=== PATIENT | male | born 1940 | race Caucasian/White ===

== ENCOUNTER → 2020-06-25 10:15 | Outpatient (BNVA) | payer MEDICARE, SELFPAY | PROVIDERS: Visit Provider Nurse Practitioner Family | DX: E11.9 Type 2 diabetes mellitus without complications (principal); E55.9 Vitamin D deficiency, unspecified; I10 Essential (primary) hypertension; E78.5 Hyperlipidemia, unspecified; N40.0 Benign prostatic hyperplasia without lower urinary tract symptoms | CPT/HCPCS: 80053; 80061; 82043; 82306; 82607; 83036; 84153; 85025 ==

== ENCOUNTER → 2020-09-11 13:58 | Outpatient (BNVA) | payer MEDICARE, SELFPAY | PROVIDERS: Visit Provider Nurse Practitioner Family | DX: M25.551 Pain in right hip (principal); M25.561 Pain in right knee; G89.29 Other chronic pain; M16.11 Unilateral primary osteoarthritis, right hip | CPT/HCPCS: 73502; 73562 ==

== ENCOUNTER → 2020-10-04 08:05 | Outpatient (BNVA) | payer MEDICARE, SELFPAY | PROVIDERS: Referring Provider Nurse Practitioner Family; Visit Provider Specialist | DX: G89.29 Other chronic pain (principal); M16.11 Unilateral primary osteoarthritis, right hip; M25.561 Pain in right knee | CPT/HCPCS: 73502 ==

== ENCOUNTER → 2020-12-20 08:47 | Outpatient (BNVA) | payer MEDICARE, SELFPAY | PROVIDERS: PCP Nurse Practitioner Family; Visit Provider Nurse Practitioner Family | DX: E11.9 Type 2 diabetes mellitus without complications (principal); I10 Essential (primary) hypertension | CPT/HCPCS: 80053; 80061; 82043; 83036; 85025 ==

== ENCOUNTER → 2021-03-28 14:11 | Outpatient (BNVA) | payer MEDICARE, SELFPAY | PROVIDERS: PCP Nurse Practitioner Family; Visit Provider Nurse Practitioner Family | DX: D64.9 Anemia, unspecified (principal) | CPT/HCPCS: 85025 ==

== ENCOUNTER → 2021-04-05 09:25 | Outpatient (BNVA) | payer MEDICARE, SELFPAY | PROVIDERS: PCP Nurse Practitioner Family; Visit Provider Nurse Practitioner Family | DX: I10 Essential (primary) hypertension (principal) | CPT/HCPCS: 85025 ==

== ENCOUNTER → 2021-06-19 08:30 | Outpatient (BNVA) | payer MEDICARE, SELFPAY | PROVIDERS: PCP Nurse Practitioner Family; Visit Provider Nurse Practitioner Family | DX: I10 Essential (primary) hypertension (principal); N40.0 Benign prostatic hyperplasia without lower urinary tract symptoms; E78.5 Hyperlipidemia, unspecified; E11.9 Type 2 diabetes mellitus without complications; E55.9 Vitamin D deficiency, unspecified | CPT/HCPCS: 80053; 80061; 82306; 83036; 84443; 85025; G0103 ==

== ENCOUNTER → 2021-09-04 09:36 | Outpatient (BNVA) | payer MEDICARE, SELFPAY | PROVIDERS: PCP Nurse Practitioner Family; Visit Provider Nurse Practitioner Family | DX: I10 Essential (primary) hypertension (principal) | CPT/HCPCS: 80048 ==

== ENCOUNTER → 2021-12-09 11:27 | Outpatient (BNVA) | payer MEDICARE, SELFPAY | PROVIDERS: PCP Nurse Practitioner Family; Visit Provider Nurse Practitioner Family | DX: E11.9 Type 2 diabetes mellitus without complications (principal); I10 Essential (primary) hypertension; E78.5 Hyperlipidemia, unspecified | CPT/HCPCS: 80053; 80061; 83036; 85025 ==

== ENCOUNTER → 2022-04-09 08:07 | Outpatient (BNVA) | payer MEDICARE, SELFPAY | PROVIDERS: PCP Nurse Practitioner Family; Visit Provider Nurse Practitioner Family | DX: I10 Essential (primary) hypertension (principal); E78.5 Hyperlipidemia, unspecified; E11.9 Type 2 diabetes mellitus without complications; E55.9 Vitamin D deficiency, unspecified | CPT/HCPCS: 80053; 80061; 82043; 82306; 83036; 84443; 85025 ==

== ENCOUNTER → 2022-04-17 08:26 | Outpatient (BNVA) | payer MEDICARE, SELFPAY | PROVIDERS: PCP Nurse Practitioner Family; Visit Provider Nurse Practitioner Family | DX: R60.9 Edema, unspecified (principal); I10 Essential (primary) hypertension | CPT/HCPCS: 80048 ==

== ENCOUNTER 2022-07-03 09:09 | Emergency (ER) | payer MEDICARE, SELFPAY ==
[2022-07-03 09:14] VITALS: BP 191/83; PULSE 91; RESP 16; TEMP 36.7; O2SAT 99; BMI 30.7
--- NOTE | 2022-07-03 09:17 | ECG_ITS ---
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 Measurements Intervals [place] Rate: 78 P: 27 [place]: 274 QRS: -58 QRSD: 165 T: 36 QT: 425 QTc: 487 Interpretive Statements SINUS RHYTHM WITH FIRST DEGREE AV BLOCK RIGHT BUNDLE BRANCH BLOCK [120+ ms QRS DURATION, UPRIGHT V1, 40+ ms S IN I/aVL/V4/V5/V6] LEFT ANTERIOR FASCICULAR BLOCK [QRS AXIS <= -45, QR IN I, RS IN II] MINIMAL VOLTAGE CRITERIA FOR LVH, CONSIDER NORMAL VARIANT [MEETS CRITERIA IN ONE OF: R(aVL), S(V1), R(V5), R(V5/V6)+S(V1)] Compared to ECG 05/16/2016 19:13:17 First degree AV block now present Right bundle-branch block now present Electronically Signed On 07-03-2022 20:42:04 AUTOMOBILE UPHOLSTERER by Jerica Bonner M.D. [id number]
--- NOTE | 2022-07-03 09:25 | W.ED.DIZZY ---
HPI - Dizziness General: Chief Complaint: Dizziness Stated Complaint: vision problems, dizzy Time Seen by Provider: 07/03/22 09:11 Source: patient Mode of arrival: ambulatory History of Present Illness: HPI Narrative: 81-year-old male who presents to the emergency room with complaints of lightheaded and dizziness that is worse when he sits better when he lays down and does not move moving his head does not seem to trigger it. It began just this morning. He has no history of strokes he has no change in vision speech or swallowing no difficulty with gait other than feeling unsteady. He states he has vertiginous-like syndrome with feels like the world is spinning around him. He has not previously had this no recent medication changes. MD elicited complaint: dizziness Onset (ago): hour(s) Severity: mild Description: room spinning Exacerbating factors: movement/ambulation and change in body position Relieving factors: remaining still Associated symptoms: Denies change in hearing, chest pain, chills, cough, diaphoresis, ear discharge, ear pressure, fevers/chills, headache(s), malaise, nausea, nasal congestion, palpitations, rash, short of breath, syncope, tinnitus, vomiting or weakness Associated neuro symptoms: Deny confusion, difficulty speaking, dysphagia, diplopia, extremity weakness, facial numbness, facial weakness, gait changes, numbness in extremities or visual changes Review of Systems Const: Denies: fever(s), chills, fatigue, malaise or diaphoresis ENMT: Denies: ear discharge, change in hearing, tinnitus or nasal congestion Card: Denies: chest pain, palpitations or syncope Resp: Denies: dyspnea, productive cough or non-productive cough GI: Denies: abdominal pain, nausea, vomiting or dysphagia : Denies: flank pain, dysuria, urinary frequency or urinary urgency Musc: Denies: neck pain or back pain Skin/Breast: Denies: rash or pruritus Neuro: Denies: headache(s), numbness in extremities or confusion [facility] ED PFSH: Medical History BPH (benign prostatic hyperplasia) Diabetes mellitus Dyslipidemia Hypertension Surgical History Hx of hernia repair (~2009) Family History Father Diabetes Hypertension Denies family history of Bleeding disorder Social History Smoking and tobacco status: never smoked Second hand smoke exposure: No Alcohol intake: never Caregiver/support person: Yes Lives independently: Yes Household members: none Marital status: Single service: No Current occupational status: retired History of recent travel: No Current gender identity: Male Special ryan needs: No Agree to transfusion: Yes Physical Exam Const: GENERAL APPEARANCE: cooperative and comfortable ORIENTATION/CONSCIOUSNESS: Yes awake, Yes oriented to person, Yes oriented to place and Yes oriented to time HENMT: COMMON NORMALS: normocephalic, atraumatic, hearing grossly normal bilaterally, external ears normal, EAC's normal, TM's normal bilaterally, Normal nasal mucous membranes and turbinates present, moist oral mucous membranes and oropharynx normal HEAD & SCALP: normocephalic and atraumatic NOSE: Normal nasal mucous membranes and turbinates present EXTERNAL EAR: Yes external ears normal EXTERNAL AUDITORY CANAL: EAC's normal TYMPANIC MEMBRANE: TM's normal bilaterally Eye: COMMON NORMALS: Equal, round and reactive pupils present, EOMs intact bilaterally, conjunctivae normal and no scleral icterus CONJUNCTIVA: Yes conjunctivae normal PUPIL: Yes Equal, round and reactive pupils present Neck/C-Spine: COMMON NORMALS: full ROM, no lymphadenopathy, supple and no JVD Resp: COMMON NORMALS: normal respiratory effort, No retractions, No use of accessory muscles and clear to auscultation bilaterally AUSCULTATION: clear to auscultation bilaterally Cardio: COMMON NORMALS: no JVD, regular rate, regular rhythm and No murmurs present (Cardio) RATE: regular rate RHYTHM: regular rhythm GI: COMMON NORMALS: Soft to palpation and No hepatosplenomegaly present AUSCULTATION: Yes normoactive bowel sounds PALPATION: Yes Soft to palpation, No Tenderness to palpation present (GI), No Guarding due to palpation present (GI) and Yes No hepatosplenomegaly present Extremity: COMMON NORMALS: normal to inspection, capillary refill normal, no clubbing, cyanosis or edema, no calf tenderness and no pedal edema Neuro: SENSORIUM/ORIENTATION: Yes oriented to person, Yes oriented to place and Yes oriented to time Skin: COMMON NORMALS: no rashes or lesions noted GENERAL SKIN EXAM: no rashes or lesions noted Course Vital Signs: Vital signs: Vital Signs Temperature 98.1 F 07/03/22 09:14 Pulse Rate 80 07/03/22 10:34 Respiratory Rate 19 H 07/03/22 10:34 Blood Pressure 186/97 07/03/22 10:34 Pulse Oximetry 99 07/03/22 09:14 MDM - Dizziness Medical Decision Making No focal deficits symptoms reproducible. Treat with meclizine recheck if not improving or if symptoms change. Medical Records I reviewed the patient's medical records. Lab Data I reviewed the patient's lab results. 07/03/22 09:40 07/03/22 09:40 Laboratory Results WBC 8.3 10^3/uL (4.0-10.0) 07/03/22 09:40 RBC 5.29 10^6/uL (4.1-5.3) 07/03/22 09:40 Hgb 16.6 g/dL (11.7-16.6) 07/03/22 09:40 Hct 49.5 % (42.0-52.0) 07/03/22 09:40 MCV 93.6 fl (80-94) 07/03/22 09:40 MCH 31.4 pg (28.0-34.0) 07/03/22 09:40 MCHC 33.5 g/dL (30.0-36.0) 07/03/22 09:40 RDW 13.4 % (12.1-15.1) 07/03/22 09:40 Plt Count 293 10^3/cmm (130-400) 07/03/22 09:40 MPV 9.2 fL (7.4-10.4) 07/03/22 09:40 Neut % (Auto) 73.7 % 07/03/22 09:40 Lymph % (Auto) 18.9 % 07/03/22 09:40 [place] % (Auto) 5.4 % 07/03/22 09:40 Eos % (Auto) 0.4 % 07/03/22 09:40 Baso % (Auto) 0.6 % 07/03/22 09:40 Neut # (Auto) 6.11 10^3/uL (1.8-7.7) 07/03/22 09:40 Lymph # (Auto) 1.6 10^3/uL (0.8-4.8) 07/03/22 09:40 [place] # (Auto) 0.5 10^3/uL (0.2-0.9) 07/03/22 09:40 Eos # (Auto) 0.0 10^3/uL (0.0-0.8) 07/03/22 09:40 Baso # (Auto) 0.1 10^3/uL (0.0-0.1) 07/03/22 09:40 Nucleated RBC % (auto) 0 % 07/03/22 09:40 Nucleated RBCs # 0.0 /100WBC 07/03/22 09:40 Sodium 129 mmol/L (136-145) L 07/03/22 09:40 Potassium 4.7 mmol/L (3.5-5.1) 07/03/22 09:40 Chloride 91 mmol/L (98-107) L 07/03/22 09:40 Carbon Dioxide 28 mmol/L (22-29) 07/03/22 09:40 Anion Gap 14.7 (5-19) 07/03/22 09:40 BUN 11 mg/dL (8-23) 07/03/22 09:40 Creatinine 0.8 mg/dL (0.7-1.2) 07/03/22 09:40 GFR Calculation Not Reportable 07/03/22 09:40 Glucose 232 mg/dL (65-115) H 07/03/22 09:40 Calculated Osmolality 275 mOsm/kg (285-295) L 07/03/22 09:40 Calcium 9.9 mg/dL (8.5-10.5) 07/03/22 09:40 Total Bilirubin 0.5 mg/dL (0.15-1.2) 07/03/22 09:40 AST 25 U/L (0-40) 07/03/22 09:40 ALT 29 U/L (0-41) 07/03/22 09:40 Alkaline Phosphatase 68 U/L (40-130) 07/03/22 09:40 Total Protein 7.4 g/dL (6.6-8.7) 07/03/22 09:40 Albumin 4.4 g/dL (3.5-5.2) 07/03/22 09:40 Globulin 3.0 g/dL (1.3-4.6) 07/03/22 09:40 Discharge Plan Discharge Patient Disposition: Home Clinical Impression: Benign paroxysmal positional vertigo Condition: Stable Prescriptions: New meclizine 25 mg tablet 25 mg PO QID PRN (Reason: dizziness) Qty: 20 0RF No Action omega-3 fatty acids 500 mg capsule 500 mg PO DAILY@04 cholecalciferol (vitamin D3) 125 mcg (5,000 unit) capsule 125 mcg PO DAILY@04 multivitamin Tablet 1 tab PO DAILY@04 Super B Complex + C Tablet 1 tab PO DAILY@04 Aspir-81 81 mg Tablet,Delayed Release (Dr/Ec) 81 mg PO DAILY@04 furosemide 20 mg tablet 20 mg PO DAILY PRN (Reason: Edema) metformin 500 mg tablet 500 mg PO BID@04,16 atorvastatin 10 mg tablet 10 mg PO DAILY@19 lisinopril-hydrochlorothiazide 20-12.5 mg tablet 1 tab PO BID@04,16 metoprolol succinate 50 mg tablet extended release 24 hr 50 mg PO DAILY@04 amlodipine 5 mg tablet 5 mg PO DAILY@04 finasteride 5 mg tablet 5 mg PO BEDTIME@19 Farxiga 10 mg tablet 10 mg PO DAILY@04 Discharge Orders: Discharge ED (Routine); Ordered 07/03/22 Ordered By: Kyle Hazel Referrals: Josi Hill FNP [Primary Care Provider] - Discharge Diet: Usual diet Discharge Activity: Increase activity as tolerated Patient Instructions: Opioid Safety, Pain Management Activity Restrictions/Additional Instructions: Meclizine as needed to relieve symptoms if symptoms persist follow-up with your primary care doctor you may need evaluation by ENT or adjustment of your blood pressure medications. Coding Level of Care Code ED Welder Production Line Arc for Martha Hansen
[2022-07-03 09:48] LABS: Basophils # 0.1 10^3/uL (0.0-0.1); Basophils % 0.6 %; Eosinophils % 0.4 %; Hematocrit 49.5 % (42.0-52.0); Hemoglobin 16.6 g/dL (11.7-16.6); Lymphocytes # 1.6 10^3/uL (0.8-4.8); Lymphocytes % 18.9 %; Mean Corpuscular HGB Conc 33.5 g/dL (30.0-36.0); Mean Corpuscular Hemoglobin 31.4 pg (28.0-34.0); Mean Corpuscular Volume 93.6 fl (80-94); Mean Platelet Volume 9.2 fL (7.4-10.4); Monocytes # 0.5 10^3/uL (0.2-0.9); Monocytes % 5.4 %; Neutrophils # 6.11 10^3/uL (1.8-7.7); Neutrophils % 73.7 %; Nucleated Red Blood Cells % 0 %; Platelet Count 293 10^3/cmm (130-400); Red Blood Count 5.29 10^6/uL (4.1-5.3); Red Cell Distribution Width 13.4 % (12.1-15.1); White Blood Count 8.3 10^3/uL (4.0-10.0)
[2022-07-03 10:16] LABS: Alanine Aminotransferase 29 U/L (0-41); Albumin Level 4.4 g/dL (3.5-5.2); Alkaline Phosphatase 68 U/L (40-130); Anion Gap 14.7 (5-19); Aspartate Amino Transferase 25 U/L (0-40); Blood Urea Nitrogen 11 mg/dL (8-23); Calcium 9.9 mg/dL (8.5-10.5); Carbon Dioxide 28 mmol/L (22-29); Chloride 91 mmol/L (98-107); Glucose 232 mg/dL (65-115); Osmolality Calculated 275 mOsm/kg (285-295); Potassium 4.7 mmol/L (3.5-5.1); Sodium 129 mmol/L (136-145); Total Bilirubin 0.5 mg/dL (0.15-1.2); Total Protein 7.4 g/dL (6.6-8.7)
[2022-07-03 10:34] VITALS: BP 186/97; PULSE 80; RESP 19
[2022-07-03] MEDS: meclizine 25 mg tablet PO (10:36)
== END 2022-07-03 12:29 | disposition home or self-care (01) ==
PROVIDERS: Emergency Provider Family Medicine; PCP Nurse Practitioner Family
DX: H81.10 Benign paroxysmal vertigo, unspecified ear (principal); Z79.82 Long term (current) use of aspirin; Z79.84 Long term (current) use of oral hypoglycemic drugs; E11.9 Type 2 diabetes mellitus without complications; E78.5 Hyperlipidemia, unspecified; I10 Essential (primary) hypertension
CPT/HCPCS: 80053; 85025; 93005; 99284; J8597

== ENCOUNTER → 2022-08-27 08:18 | Outpatient (BNVA) | payer MEDICARE, SELFPAY | PROVIDERS: PCP Nurse Practitioner Family; Visit Provider Nurse Practitioner Family | DX: E11.9 Type 2 diabetes mellitus without complications (principal); Z09 Encounter for follow-up examination after completed treatment for conditions other than malignant neoplasm; I10 Essential (primary) hypertension; E78.5 Hyperlipidemia, unspecified; E55.9 Vitamin D deficiency, unspecified | CPT/HCPCS: 80053; 80061; 82043; 82306; 83036; 84443; 85025 ==

== ENCOUNTER → 2022-09-11 08:16 | Outpatient (BNVA) | payer MEDICARE, SELFPAY | PROVIDERS: PCP Nurse Practitioner Family; Visit Provider Nurse Practitioner Family | DX: R60.9 Edema, unspecified (principal) | CPT/HCPCS: 80048 ==

== ENCOUNTER → 2022-09-12 08:24 | Outpatient (BNVA) | payer MEDICARE, SELFPAY | PROVIDERS: PCP Nurse Practitioner Family; Visit Provider Nurse Practitioner Family | DX: R39.9 Unspecified symptoms and signs involving the genitourinary system (principal) | CPT/HCPCS: 81000 ==

== ENCOUNTER → 2022-09-26 08:25 | Outpatient (BNVA) | payer MEDICARE, SELFPAY | PROVIDERS: PCP Nurse Practitioner Family; Visit Provider Nurse Practitioner Family | DX: E11.9 Type 2 diabetes mellitus without complications (principal); I10 Essential (primary) hypertension | CPT/HCPCS: 80048 ==

== ENCOUNTER → 2022-11-19 13:28 | Outpatient (BNVA) | payer MEDICARE, SELFPAY | PROVIDERS: PCP Nurse Practitioner Family; Visit Provider Internal Medicine | DX: R07.9 Chest pain, unspecified (principal); I44.0 Atrioventricular block, first degree; I45.2 Bifascicular block; I10 Essential (primary) hypertension; E78.5 Hyperlipidemia, unspecified; E11.9 Type 2 diabetes mellitus without complications | CPT/HCPCS: 93005; 99204 ==

== ENCOUNTER → 2022-12-02 10:58 | Outpatient (BNVA) | payer MEDICARE, SELFPAY | PROVIDERS: PCP Nurse Practitioner Family; Visit Provider Nurse Practitioner Family | DX: E11.9 Type 2 diabetes mellitus without complications (principal); E55.9 Vitamin D deficiency, unspecified | CPT/HCPCS: 80053; 80061; 82306; 82607; 83036; 84443; 85025 ==

== ENCOUNTER 2022-12-04 06:47 | Outpatient (CLI) | payer MEDICARE, SELFPAY ==
--- NOTE | 2022-12-04 07:00 | USCV_ITS ---
Andre Arana Age: 82 Gender: M : 1940 Exam Date: 12/04/2022 07:23 Ordering Phys: Hu Ureña M.D ([email or web address]) Technologist: Brian Escobar [place] [facility] [place]: chest pain, sob BP: 170 / 80 HR: 64 Rhythm: Sinus Technical Quality: Adequate MEASUREMENTS (Male / Female) Normal Values 2D ECHO LVOT Diameter 2.1 cm LV Ejection Fraction MOD 2C 63.3 % LV Ejection Fraction 2C AL 63.5 % LA Diameter 3.5 cm LA Width 3.7 cm LA Height 4.0 cm RA Width 3.1 cm RA Height 4.8 cm Aorta at Sinotubular Diameter 2.2 cm IVC Diameter 1.4 cm M-MODE Aortic Annulus Diameter 2.9 cm LA Ao Ratio MM 1.4 MV E Point Septal Separation 0.5 cm DOPPLER AV Peak Velocity 144.3 cm/s LVOT Peak Velocity 86.0 cm/s AV Area Cont Eq vti 2.0 cm squared AV Area Cont Eq pk 2.0 cm squared MV Peak Velocity 149.0 cm/s MV Area PHT 3.3 cm squared Mitral E to A Ratio 0.5 MV E' Velocity 36.5 cm/s Mitral E to MV E' Ratio 11.0 Mitral E to LV E' Lateral Ratio 9.2 Mitral E to LV E' Septal Ratio 13.7 TR Peak Velocity 258.2 cm/s TR Peak Gradient 26.7 mmHg TR Mean Velocity 218.5 cm/s TR Mean Gradient 21.3 mmHg TR Velocity Time Integral 90.4 cm Right Atrial Pressure 3.0 mmHg Pulmonary Artery Systolic Pressu 29.7 mmHg PV Peak Velocity 110.3 cm/s RV Acceleration Time 0.1 s RV Ejection Time 0.3 s RV AcT/ET 0.2 FINDINGS Left Ventricle Left ventricle is normal size. LV systolic function is normal with EF of 55 to 60%. No regional wall motion abnormalities are seen. Grade 1 diastolic dysfunction Right Ventricle Normal in size and function Right Atrium Normal in size Left Atrium Normal in size Mitral Valve Moderate mitral annular calcification. Trace mitral regurgitation. Aortic Valve Aortic valve is thickened and calcified. No significant stenosis. Mild aortic regurgitation. Tricuspid Valve Mild tricuspid regurgitation. RVSP is 35 to 40 mmHg. This is consistent with mild pulmonary hypertension. Pulmonic Valve Not well visualized. Trace pulmonic regurgitation. Pericardium Normal Aorta Normal in size IVC Appears to be normal CONCLUSIONS LV systolic function is normal with EF of 55 to 60%. Grade 1 diastolic dysfunction Trace mitral regurgitation Mild aortic regurgitation Mild tricuspid regurgitation Mild pulmonary hypertension Trace pulmonic regurgitation. Compared to prior echocardiogram from 2015, no significant changes are seen. Hu Ureña MD (Electronically Signed) Final Date: 04 December 2022 17:20 S
== END 2022-12-04 06:48 | disposition home or self-care (01) ==
PROVIDERS: PCP Nurse Practitioner Family; Visit Provider Internal Medicine
DX: R07.9 Chest pain, unspecified (principal); R06.02 Shortness of breath
CPT/HCPCS: 93306

== ENCOUNTER → 2023-05-06 11:40 | Outpatient (BNVA) | payer MEDICARE, SELFPAY | PROVIDERS: PCP Nurse Practitioner Family; Visit Provider Nurse Practitioner Family | DX: R60.9 Edema, unspecified (principal); I10 Essential (primary) hypertension; E78.5 Hyperlipidemia, unspecified; E11.9 Type 2 diabetes mellitus without complications; E55.9 Vitamin D deficiency, unspecified; Z09 Encounter for follow-up examination after completed treatment for conditions other than malignant neoplasm; Z12.5 Encounter for screening for malignant neoplasm of prostate | CPT/HCPCS: 80053; 80061; 82306; 83036; 84443; 85025; G0103 ==

== ENCOUNTER → 2023-07-29 08:58 | Outpatient (BNVA) | payer MEDICARE, SELFPAY | PROVIDERS: PCP Nurse Practitioner Family; Visit Provider Nurse Practitioner Family | DX: I10 Essential (primary) hypertension (principal); E11.9 Type 2 diabetes mellitus without complications; Z79.899 Other long term (current) drug therapy | CPT/HCPCS: 80053; 80061; 82043; 83036; 85025 ==

== ENCOUNTER → 2023-08-24 09:15 | Outpatient (BNVA) | payer MEDICARE, SELFPAY | PROVIDERS: PCP Nurse Practitioner Family; Visit Provider Nurse Practitioner Family | DX: E87.1 Hypo-osmolality and hyponatremia (principal) | CPT/HCPCS: 80048 ==

== ENCOUNTER → 2023-09-09 09:00 | Outpatient (BNVA) | payer MEDICARE, SELFPAY | PROVIDERS: PCP Nurse Practitioner Family; Visit Provider Nurse Practitioner Family | DX: E87.1 Hypo-osmolality and hyponatremia (principal) | CPT/HCPCS: 80048 ==

== ENCOUNTER → 2023-11-04 08:31 | Outpatient (BNVA) | payer MEDICARE, SELFPAY | PROVIDERS: PCP Nurse Practitioner Family; Visit Provider Nurse Practitioner Family | DX: E11.9 Type 2 diabetes mellitus without complications (principal); I10 Essential (primary) hypertension; N40.0 Benign prostatic hyperplasia without lower urinary tract symptoms | CPT/HCPCS: 80053; 80061; 83036; 85025 ==

== ENCOUNTER → 2024-02-11 09:08 | Outpatient (BNVA) | payer MEDICARE, SELFPAY | PROVIDERS: PCP Nurse Practitioner Family; Visit Provider Nurse Practitioner Family | DX: E87.1 Hypo-osmolality and hyponatremia (principal); E11.9 Type 2 diabetes mellitus without complications | CPT/HCPCS: 80053; 80061; 83036; 85025 ==

== ENCOUNTER 2024-02-21 06:00 | Outpatient (RCR) | payer MEDICARE, SELFPAY | END 2024-03-21 23:59 | disposition home or self-care (01) | LOC: TPT 06:00 | PROVIDERS: PCP Nurse Practitioner Family; Visit Provider Nurse Practitioner Family | DX: R26.81 Unsteadiness on feet (principal) | CPT/HCPCS: 97110; 97116; 97162 ==

== ENCOUNTER 2024-03-22 06:00 | Outpatient (RCR) | payer MEDICARE, SELFPAY | END 2024-04-21 23:59 | disposition home or self-care (01) | LOC: TPT 06:00 | PROVIDERS: PCP Nurse Practitioner Family; Visit Provider Nurse Practitioner Family | DX: R26.81 Unsteadiness on feet (principal) | CPT/HCPCS: 97110; 97116 ==

== ENCOUNTER → 2024-07-20 10:14 | Outpatient (BNVA) | payer MEDICARE, SELFPAY | PROVIDERS: PCP Nurse Practitioner Family; Visit Provider Nurse Practitioner Family | DX: E11.9 Type 2 diabetes mellitus without complications (principal); I10 Essential (primary) hypertension; Z12.5 Encounter for screening for malignant neoplasm of prostate | CPT/HCPCS: 80053; 80061; 81000; 83036; 85025 ==

== ENCOUNTER → 2024-08-23 09:35 | Outpatient (BNVA) | payer MEDICARE, SELFPAY | PROVIDERS: PCP Nurse Practitioner Family; Visit Provider Nurse Practitioner Family | DX: R60.9 Edema, unspecified (principal) | CPT/HCPCS: 80048 ==

== ENCOUNTER → 2024-10-24 09:10 | Outpatient (BNVA) | payer MEDICARE, SELFPAY | PROVIDERS: PCP Nurse Practitioner Family; Visit Provider Nurse Practitioner Family | DX: E11.9 Type 2 diabetes mellitus without complications (principal); I10 Essential (primary) hypertension; Z09 Encounter for follow-up examination after completed treatment for conditions other than malignant neoplasm; E55.9 Vitamin D deficiency, unspecified; Z13.6 Encounter for screening for cardiovascular disorders | CPT/HCPCS: 80053; 80061; 82306; 82607; 82962; 83036; 83735; 83880; 84443; 85025 ==

== ENCOUNTER → 2024-10-27 11:46 | Outpatient (BNVA) | payer MEDICARE, SELFPAY | PROVIDERS: PCP Nurse Practitioner Family; Visit Provider Internal Medicine | DX: I10 Essential (primary) hypertension (principal); E78.5 Hyperlipidemia, unspecified; E11.9 Type 2 diabetes mellitus without complications; Z79.84 Long term (current) use of oral hypoglycemic drugs; I50.9 Heart failure, unspecified | CPT/HCPCS: 99214 ==

== ENCOUNTER 2024-10-31 18:26 | Emergency (ER) | payer MEDICARE, SELFPAY ==
--- NOTE | 2024-10-31 18:27 | XRR_ITS ---
PROCEDURE INFORMATION: Exam: XR Chest Exam date and time: 10/31/2024 6:43 PM Age: 84 years old Clinical indication: Pain; Chest pressure; Additional info: Chest pain TECHNIQUE: Imaging protocol: Radiologic exam of the chest. Views: 1 view. COMPARISON: CR XR chest 2V* [id number] 09/22/2018 2:46 AM FINDINGS: Lungs: No lobar consolidation. Bibasilar atelectasis. Pleural spaces: Unremarkable. No pleural effusion. No pneumothorax. Heart/Mediastinum: Unremarkable. No cardiomegaly. Bones/joints: Unremarkable. XR/XR chest 1V portable [id number] IMPRESSION: As above.
[2024-10-31 18:28] VITALS: BP 180/81; PULSE 47; TEMP 36.8; O2SAT 92; BMI 33.9
--- NOTE | 2024-10-31 18:33 | ECG_ITS ---
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: : 1940 Requested By: Marion Mark Order Number: [id number] William MD: VINNY BERMEO Measurements Intervals [place] Rate: 92 P: 50 SC: 253 QRS: -66 QRSD: 158 T: 70 QT: 349 QTc: 432 Interpretive Statements SINUS RHYTHM WITH FIRST DEGREE AV BLOCK WITH FREQUENT VENTRICULAR PREMATURE COMPLEXES IN A BIGEMINAL PATTERN RIGHT BUNDLE BRANCH BLOCK [120+ ms QRS DURATION, UPRIGHT V1, 40+ ms S IN I/aVL/V4/V5/V6] LEFT ANTERIOR FASCICULAR BLOCK [QRS AXIS <= -45, QR IN I, RS IN II] LEFT VENTRICULAR HYPERTROPHY AND ST-T CHANGE [VOLTAGE CRITERIA PLUS ST/T ABNORMALITY] Compared to ECG 11/19/2022 13:36:47 Ventricular premature complex(es) now present ST (T wave) deviation now present Electronically Signed On 11-03-2024 23:35:53 CDT by VINNY BERMEO [id number]
--- NOTE | 2024-10-31 18:46 | ED_ITS ---
HPI - Arrhythmia/Palpitations 2 General: Chief Complaint: Arrhythmia/Palpitations Stated Complaint: chest pressure Time Seen by Provider: 10/31/24 18:42 Source: patient Mode of arrival: ambulatory Limitations: no limitations History of Present Illness: 84-year-old male states he has been havi ng chest pressure since this afternoon. He denies any severe pain states it is a pressure he is also been having some hypertension at home as well. He denies any shortness of breath denies any nausea denies any vomiting. Associated symptoms: Deny nausea or vomiting Related Data Home Medications ?Medication ?Instructions ?Recorded ?Confirmed cholecalciferol (vitamin D3) 125 125 mcg PO DAILY@04 0 06/25/20 10/27/24 mcg (5,000 unit) capsule multivitamin 1 tab PO DAILY@06/25/20 0 10/27/24 omega-3 fatty acids 500 mg capsule 500 mg PO DAILY@04 06/25/20 10/27/24 B-complex with vitamin C 1 tab PO DAILY@07/03/22 0 10/27/24 Previous Rx's ?Medication ?Instructions ?Recorded blood sugar diagnostic (Blood #50 ea 09/12/22 Glucose Test strips) blood-glucose meter (Blood Glucose #1 ea 09/12/22 Monitoring kit) lancets 33 gauge (BD Ultra Fine #100 ea 09/12/22 Lancets) carvedilol 12.5 mg tablet 12.5 mg PO BID #180 tabs atorvastatin 10 mg tablet See Rx Instructions .Route 0 07/27/24 .COMPLEX #90 tabs empagliflozin 25 mg tablet See Rx Instructions .Route 07/27/24 (Jardiance) .COMPLEX #90 tabs finasteride 5 mg tablet See Rx Instructions .Route 0 07/27/24 .COMPLEX #90 tabs glipizide 5 mg tablet, extended See Rx Instructions .R oute 07/27/24 release 24 hr .COMPLEX #90 tabs metformin 500 mg tablet See Rx Instructions .Route 0 07/27/24 .COMPLEX #360 tabs lisinopril 40 mg tablet See Rx Instructions .Route 0 10/24/24 .COMPLEX #90 tabs sitagliptin phosphate 25 mg tablet See Rx Instructions .Route 10/26/24 (Januvia) .COMPLEX #90 tabs amlodipine 10 mg tablet 10 mg PO DAILY #90 tabs 02/13 furosemide 20 mg tablet 20 mg PO BID PRN Edema #180 tabs 10/27/24 Allergies Allergy/AdvReac Type Severity Reaction Status Date / Time No Known Allergies Allergy Verified 10/31/24 18:38 Review of Systems 2 Const: Denies: fever(s), chills, body aches or change in appetite ENMT: Denies: throat pain or dental pain Card: Reports: chest pain Resp: Denies: dyspnea GI: Denies: abdominal pain, nausea, vomiting or diarrhea Musc: Denies: neck pain or back pain Skin/Breast: Denies: rash Neuro: Denies: headache(s) PFSH ED 2 PFSH: Medical History Enrolled in chronic care management BPH (benign prostatic hyperplasia) Dyslipidemia Hypertension Diabetes mellitus Surgical History Hx of hernia repair (~2009) Family History Father Diabetes Hypertension Denies family history of Bleeding disorder Social History Smoking and tobacco/nicotine status: never used tobacco/nicotine Second hand smoke exposure: No Alcohol intake: never Substance/Drug Use: never Caregiver/support person: Yes Lives independently: Yes Household members: none Marital status: Single service: No Current occupational status: retired Current gender identity: Male Special ryan needs: No Agree to transfusion: Yes Physical Exam 2 Const: COMMON NORMALS: patient oriented x3 HENMT: COMMON NORMALS: normocephalic and atraumatic HEAD & SCALP: n ormocephalic and atraumatic Neck/C-Spine: COMMON NORMALS: full ROM and supple Chest: COMMONS NORMALS: normal inspection of the chest Resp: COMMON NORMALS: normal respiratory effort, No retractions, No use of accessory muscles and clear to auscultation bilaterally AUSCULTATION: clear to auscultation bilaterally Cardio: COMMON NORMALS: regular rate, regular rhythm and No murmurs present (Cardio) RATE: regular rate RHYTHM: regular rhythm Extremity: COMMON NORMALS: normal to inspection and full ROM Neuro: COMMON NORMALS: patient oriented x3, moves all extremities and no focal motor deficits Psych: COMMON NORMALS: mental status grossly normal, Normal thought process present and cooperative THOUGHT PROCESS: Normal thought process present Skin: COMMON NORMALS: no rashes or lesions noted and no wounds GENERAL SKIN EXAM: no rashes or lesions noted Course 2 Vital Signs: Vital signs: Vital Signs Temperature 98.3 F 10/31/24 18:28 Pulse Rate 71 10/31/24 21:17 Respiratory Rate 16 10/31/24 21:17 Blood Pressure 147/82 10/31/24 21:17 Pulse Oximetry 93 10/31/24 21:17 Oxygen Delivery Me thod Room Air 10/31/24 20:30 MDM - Arrhythmia/Palpitations Medical Decision Making Patient presents for chest pressure that is since resolved his delta troponin was less than 10 he is wanting go home he has no signs of ACS or pulmonary embolism or dissection he is to follow-up with his quality review specialist return if worsening he understands agrees to plan. Medical Records I reviewed the patient's medical records. Lab Data I reviewed the patient's lab results. 10/31/24 18:59 10/31/24 18:59 Radiology Impressions Chest X-Ray 10/31/24 18:27 IMPRESSION: As above. Laboratory Results WBC 7.95 10^3/uL (3.29-11.43) 10/31/24 18:59 RBC 5.46 10^6/uL (3.85-5.65) 10/31/24 18:59 Hgb 17.00 g/dL (11.27-16.99) H 10/31/24 18:59 Hct 50.8 % (37-53) 10/31/24 18:59 MCV 93.0 fl (82-101) 10/31/24 18:59 MCH 31.1 pg (27-33) 10/31/24 18:59 MCHC 33.5 g/dL (30-55) 10/31/24 18:59 RDW 13.9 % (12.1-15.1) 10/31/24 18:59 Plt Count 217 10^3/cmm (157-399) 10/31/24 18:59 MPV 9.2 fL (7.4-10.4) 10/31/24 18:59 Neut % (Auto) 53.3 % 10/31/24 18:59 Lymph % (Auto) 30.2 % 10/31/24 18:59 [place] % (Auto) 11.1 % 10/31/24 18:59 Eos % (Auto) 3.8 % 10/31/24 18:59 Baso % (Auto) 0.8 % 10/31/24 18:59 Neut # (Auto) 4.25 10^3/uL (1.8-7.7) 10/31/24 18:59 Lymph # (Auto) 2.4 10^3/uL (0.8-4.8) 10/31/24 18:59 [place] # (Auto) 0.9 10^3/uL (0.2-0.9) 10/31/24 18:59 Eos # (Auto) 0.3 10^3/uL (0.0-0.8) 10/31/24 18:59 Baso # (Auto) 0.1 10^3/uL (0.0-0.1) 10/31/24 18:59 Nucleated RBC % (auto) 0 % 10/31/24 18:59 Nucleated RBCs # 0.0 /100WBC 10/31/24 18:59 Sodium 135 mmol/L (136-145) L 10/31/24 18:59 Potassium 3.7 mmol/L (3.5-5.1) 10/31/24 18:59 Chloride 97 mmol/L (98-107) L 10/31/24 18:59 Carbon Dioxide 25 mmol/L (22-29) 10/31/24 18:59 Anion Gap 16.7 (5-19) 10/31/24 18:59 BUN 15 mg/dL (8-23) 10/31/24 18:59 Creatinine 0.7 mg/dL (0.7-1.2) 10/31/24 18:59 GFR Calculation Not Reportable 10/31/24 18:59 Glucose 148 mg/dL (65-115) H 10/31/24 18:59 Calculated Osmolality 284 mOsm/kg (285-295) L 10/31/24 18:59 Calcium 9.4 mg/dL (8.5-10.5) 10/31/24 18:59 Total Bilirubin 0.4 mg/dL (0.15-1.2) 10/31/24 18:59 AST 24 U/L (0-40) 10/31/24 18:59 ALT 29 U/L (0-41) 10/31/24 18:59 Alkaline Phosphatase 71 U/L (40-130) 10/31/24 18:59 Troponin T Baseline 50 ng/L (0-15) H 10/31/24 18:59 Troponin T 120 Minute 54.15 ng/L (0-15) H 10/31/24 20:30 Delta Troponin T 4.15 ABS# (0-10) 10/31/24 20:30 NT-Pro-B Natriuret Pep 258 pg/mL (0-450) 10/31/24 18:59 Total Protein 6.7 g/dL (6.6-8.7) 10/31/24 18:59 Albumin 4.3 g/dL (3.5-5.2) 10/31/24 18:59 Globulin 2.4 g/dL (1.3-4.6) 10/31/24 18:59 All radiology interpretation(s) finalized by discharge Discharge Plan Discharge Patient Disposition: Home Clinical Impression: Chest pain Condition: Stable Prescriptions: No Action omega-3 fatty acids 500 mg capsule 500 mg PO DAILY@04 cholecalciferol (vitamin D3) 125 mcg (5,000 unit) capsule 125 mcg PO DAILY@04 multivitamin Tablet 1 tab PO DAILY@04 metformin 500 mg tablet See Rx Instructions .ROUTE .COMPLEX Qty: 360 1RF Dose Instruction: TAKE 2 TABLETS BY MOUTH TWICE DAILY AT 4AM AND 4PM Rx Instructions: TAKE 2 TABLETS BY MOUTH TWICE DAILY AT 4AM AND 4PM glipizide 5 mg tablet extended release 24hr See Rx Instructions .ROUTE .COMPLEX Qty: 90 1RF Dose Instruction: Take 1 tablet by mouth once daily with breakfast Rx Instructions: Take 1 tablet by mouth once daily with breakfast finasteride 5 mg tablet See Rx Instructions .ROUTE .COMPLEX Qty: 90 1RF Dose Instruction: Take 1 tablet by mouth once daily Rx Instructions: Take 1 tablet by mouth once daily Jardiance 25 mg tablet See Rx Instructions .ROUTE .COMPLEX Qty: 90 1RF Dose Instruction: TAKE ONE TABLET BY MOUTH EVERY MORNING Rx Instructions: TAKE ONE TABLET BY MOUTH EVERY MORNING atorvastatin 10 mg tablet See Rx Instructions .ROUTE .COMPLEX Qty: 90 1RF Dose Instruction: TAKE 1 TABLET BY MOUTH ONCE DAILY AT 7PM Rx Instructions: TAKE 1 TABLET BY MOUTH ONCE DAILY AT 7PM furosemide 20 mg tablet 20 mg PO BID PRN (Reason: Edema) Qty: 180 3RF amlodipine 10 mg tablet 10 mg PO DAILY Qty: 90 3RF (DME) blood-glucose meter [Blood Glucose Monitoring] Kit See Rx Instructions .ROUTE .MEDSUPPLY Qty: 1 0RF Rx Instructions: check blood sugar daily and PRN (DME) Blood Glucose Test Strip See Rx Instructions .ROUTE .MEDSUPPLY Qty: 50 12RF Rx Instructions: check blood sugar daily and PRN (DME) lancets [BD Ultra Fine Lancets] 33 gauge misc See Rx Instructions .ROUTE .MEDSUPPLY Qty: 100 11RF Rx Instructions: check blood sugar daily and PRN carvedilol 12.5 mg tablet 12.5 mg PO BID Qty: 180 1RF Rx Instructions: PATIENT MUST MAKE APPOINTMENT AND BE SEEN FOR FURTHER REFILLS lisinopril 40 mg tablet See Rx Instructions .ROUTE .COMPLEX Qty: 90 1RF Dose Instruction: Take 1 tablet by mouth twice daily Rx Instructions: Take 1 tablet by mouth daily Januvia 25 mg tablet See Rx Instructions .ROUTE .COMPLEX Qty: 90 0RF Dose Instruction: Take 1 tablet by mouth once daily Rx Instructions: Take 1 tablet by mouth once daily Super B Complex + C Tablet 1 tab PO DAILY@04 Discharge Orders: Discharge ED (Routine); Ordered 10/31/24 Ordered By: Renetta Hein Referrals: Josi Hill FNP [Primary Care Provider, Family Practice] Discharge Diet: Advance as tolerated Discharge Activity: Resume usual activity Patient Instructions: Chest Pain (ED) Print Language: Montserratian Coding Level of Care Code ED Crossing Watchman for Martha Hansen
[2024-10-31] MEDS: aspirin 81 mg Chew Tablet 324 MG PO (19:00)
[2024-10-31] MEDS: nitroglycerin 0.4 mg sublingual Tablet SUBLINGUAL (19:01)
[2024-10-31 19:06] LABS: Basophils # 0.1 10^3/uL (0.0-0.1); Basophils % 0.8 %; Eosinophils # 0.3 10^3/uL (0.0-0.8); Eosinophils % 3.8 %; Hematocrit 50.8 % (37-53); Lymphocytes # 2.4 10^3/uL (0.8-4.8); Lymphocytes % 30.2 %; Mean Corpuscular HGB Conc 33.5 g/dL (30-55); Mean Corpuscular Hemoglobin 31.1 pg (27-33); Mean Platelet Volume 9.2 fL (7.4-10.4); Monocytes # 0.9 10^3/uL (0.2-0.9); Monocytes % 11.1 %; Neutrophils # 4.25 10^3/uL (1.8-7.7); Neutrophils % 53.3 %; Nucleated Red Blood Cells % 0 %; Platelet Count 217 10^3/cmm (157-399); Red Blood Count 5.46 10^6/uL (3.85-5.65); Red Cell Distribution Width 13.9 % (12.1-15.1); White Blood Count 7.95 10^3/uL (3.29-11.43)
[2024-10-31 19:19] VITALS: BP 152/72; PULSE 91; RESP 16; O2SAT 92
[2024-10-31 19:31] LABS: Troponin(5th) Baseline 50 ng/L (0-15)
[2024-10-31 19:39] LABS: Alanine Aminotransferase 29 U/L (0-41); Albumin Level 4.3 g/dL (3.5-5.2); Alkaline Phosphatase 71 U/L (40-130); Anion Gap 16.7 (5-19); Aspartate Amino Transferase 24 U/L (0-40); Blood Urea Nitrogen 15 mg/dL (8-23); Calcium 9.4 mg/dL (8.5-10.5); Carbon Dioxide 25 mmol/L (22-29); Chloride 97 mmol/L (98-107); Globulin 2.4 g/dL (1.3-4.6); Glucose 148 mg/dL (65-115); NT Pro B Type Natriuretic Pept 258 pg/mL (0-450); Osmolality Calculated 284 mOsm/kg (285-295); Potassium 3.7 mmol/L (3.5-5.1); Sodium 135 mmol/L (136-145); Total Bilirubin 0.4 mg/dL (0.15-1.2); Total Protein 6.7 g/dL (6.6-8.7)
[2024-10-31 19:44] VITALS: BP 142/68; PULSE 43; RESP 14; O2SAT 93
[2024-10-31 20:20] VITALS: BP 132/82; PULSE 78; RESP 14; O2SAT 92
--- NOTE | 2024-10-31 20:27 | ECG_ITS ---
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: : 1940 Requested By: Marion Mark Order Number: [id number] Reading MD: Measurements Intervals [place] Rate: 82 P: 61 VT: 267 QRS: -62 QRSD: 165 T: 35 QT: 377 QTc: 443 Interpretive Statements SINUS RHYTHM WITH FIRST DEGREE AV BLOCK WITH FREQUENT VENTRICULAR PREMATURE COMPLEXES RIGHT BUNDLE BRANCH BLOCK [120+ ms QRS DURATION, UPRIGHT V1, 40+ ms S IN I/aVL/V4/V5/V6] LEFT ANTERIOR FASCICULAR BLOCK [QRS AXIS <= -45, QR IN I, RS IN II] MODERATE VOLTAGE CRITERIA FOR LVH, CONSIDER NORMAL VARIANT [MEETS CRITERIA IN ONE OF: R(aVL), S(V1), R(V5), R(V5/V6)+S(V1)] [email or web address]
[2024-10-31 20:30] VITALS: BP 128/74; PULSE 68; RESP 16; O2SAT 94
[2024-10-31 20:57] LABS: Troponin 5 2HR 54.15 ng/L (0-15); Troponin 5 2HR Delta 4.15 ABS# (0-10)
[2024-10-31 21:17] VITALS: BP 147/82; PULSE 71; RESP 16; O2SAT 93
== END 2024-10-31 21:17 | disposition home or self-care (01) ==
PROVIDERS: Physician Assistant; Emergency Provider Emergency Medicine; PCP Nurse Practitioner Family
DX: R07.9 Chest pain, unspecified (principal); Z79.84 Long term (current) use of oral hypoglycemic drugs; E78.5 Hyperlipidemia, unspecified; I10 Essential (primary) hypertension; E11.9 Type 2 diabetes mellitus without complications
CPT/HCPCS: 36415; 71045; 80053; 83880; 84484; 85025; 93005; 99285; J9999

== ENCOUNTER → 2024-11-09 11:00 | Outpatient (BNVA) | payer MEDICARE, SELFPAY | PROVIDERS: PCP Nurse Practitioner Family; Visit Provider Nurse Practitioner Family | DX: M79.89 Other specified soft tissue disorders (principal); I10 Essential (primary) hypertension; E78.5 Hyperlipidemia, unspecified; E11.9 Type 2 diabetes mellitus without complications; Z79.84 Long term (current) use of oral hypoglycemic drugs; Z09 Encounter for follow-up examination after completed treatment for conditions other than malignant neoplasm; R06.02 Shortness of breath | CPT/HCPCS: 36415; 83880; 85025; 99214 ==

== ENCOUNTER → 2024-11-17 14:19 | Outpatient (BNVA) | payer MEDICARE, SELFPAY | PROVIDERS: PCP Nurse Practitioner Family; Visit Provider Nurse Practitioner Family | DX: I10 Essential (primary) hypertension (principal); M79.89 Other specified soft tissue disorders; E78.5 Hyperlipidemia, unspecified; E11.9 Type 2 diabetes mellitus without complications; Z79.84 Long term (current) use of oral hypoglycemic drugs | CPT/HCPCS: 36415; 80048; 99214 ==

== ENCOUNTER 2024-11-24 08:20 | Outpatient (CLI) | payer MEDICARE, SELFPAY ==
--- NOTE | 2024-11-24 08:45 | USCV_ITS ---
Andre Arana Age: 84 Gender: M : 1940 Exam Date: 11/24/2024 09:12 Ordering Phys: Marion Jefferson NP Technologist: KYARA [place] [facility] [place] [facility] [place]: [place] HISTORY: Lower extremity swelling. PROCEDURES: Venous duplex imaging was performed in bilateral lower extremities. The following venous structures were evaluated: common femoral vein, profunda vein, proximal portion of the greater saphenous vein, superficial femoral vein, and the popliteal vein. In addition, the posterior tibial and peroneal trunk were evaluated. FINDINGS: No evidence of DVT seen in any vessel visualized at this time. CONCLUSIONS No evidence of right lower extremity DVT. No evidence of left lower extremity DVT. Yfn Andrade MD (Electronically Signed) Final Date: 24 November 2024 13:40 S
== END 2024-11-24 08:21 | disposition home or self-care (01) ==
LOC: RAD 08:23
PROVIDERS: PCP Nurse Practitioner Family; Visit Provider Nurse Practitioner Family
DX: Z09 Encounter for follow-up examination after completed treatment for conditions other than malignant neoplasm (principal); M79.89 Other specified soft tissue disorders
CPT/HCPCS: 93970

== ENCOUNTER → 2024-11-28 08:34 | Outpatient (BNVA) | payer MEDICARE, SELFPAY | PROVIDERS: PCP Nurse Practitioner Family; Visit Provider Internal Medicine | DX: I10 Essential (primary) hypertension (principal); I50.9 Heart failure, unspecified | CPT/HCPCS: 80048; 83880 ==

== ENCOUNTER → 2024-12-05 13:45 | Outpatient (BNVA) | payer MEDICARE, SELFPAY | PROVIDERS: PCP Nurse Practitioner Family; Visit Provider Nurse Practitioner Family | DX: I10 Essential (primary) hypertension (principal); E78.5 Hyperlipidemia, unspecified; R60.9 Edema, unspecified; L03.90 Cellulitis, unspecified | CPT/HCPCS: 99214 ==

== ENCOUNTER 2024-12-09 06:44 | Emergency (ER) | payer MEDICARE, SELFPAY ==
[2024-12-09 06:58] VITALS: BP 152/88; PULSE 88; RESP 16; TEMP 36.9; O2SAT 94; BMI 33.3
[2024-12-09 07:12] VITALS: BP 193/79; PULSE 93; RESP 18; O2SAT 94
[2024-12-09 07:39] LABS: Basophils # 0.1 10^3/uL (0.0-0.1); Basophils % 0.8 %; Eosinophils # 0.2 10^3/uL (0.0-0.8); Eosinophils % 2.5 %; Hematocrit 50.9 % (37-53); Lymphocytes # 2.1 10^3/uL (0.8-4.8); Lymphocytes % 25.3 %; Mean Corpuscular HGB Conc 33.4 g/dL (30-55); Mean Corpuscular Hemoglobin 30.9 pg (27-33); Mean Corpuscular Volume 92.5 fl (82-101); Mean Platelet Volume 9.5 fL (7.4-10.4); Monocytes # 0.7 10^3/uL (0.2-0.9); Monocytes % 8.5 %; Neutrophils # 5.18 10^3/uL (1.8-7.7); Neutrophils % 61.1 %; Nucleated Red Blood Cells % 0 %; Platelet Count 182 10^3/cmm (157-399); White Blood Count 8.47 10^3/uL (3.29-11.43)
[2024-12-09 07:43] LABS: Bilirubin Urine Negative (Negative); Blood Urine Negative (Negative); Glucose Urine UA 3+ (Normal); Ketones Urine Negative (Negative); Leukocyte Esterase Urine Negative (Negative); Nitrate Urine Negative (Negative); Protein Urine Negative (Negative); Specific Gravity, Urine 1.015 (1.005-1.030); Urine Appearance Clear (CLEAR); Urine Color Yellow (Yellow); Urobilinogen Urine 0.2 mg/dL (Negative)
[2024-12-09 07:48] LABS: Add Urine Microscopic? YES; Bacteria Urine None Seen /hpf; Hyaline Casts Urine 0-4 /lpf; RBC Urine 0-2 /hpf (0-2); Squamous Epithelial Cell Urine 0-5 /hpf (0-5); WBC Urine 0-5 /hpf (0-5)
[2024-12-09 07:53] VITALS: BP 188/77; PULSE 89; RESP 16; O2SAT 94
[2024-12-09 07:55] LABS: Alanine Aminotransferase 34 U/L (0-41); Alkaline Phosphatase 73 U/L (40-130); Anion Gap 14.9 (5-19); Aspartate Amino Transferase 22 U/L (0-40); Blood Urea Nitrogen 10 mg/dL (8-23); Calcium 9.5 mg/dL (8.5-10.5); Carbon Dioxide 25 mmol/L (22-29); Chloride 98 mmol/L (98-107); Creatinine Clr Calc Pharmacy 72.4248; Globulin 3.1 g/dL (1.3-4.6); Glucose 225 mg/dL (65-115); Osmolality Calculated 284 mOsm/kg (285-295); Potassium 3.9 mmol/L (3.5-5.1); Sodium 134 mmol/L (136-145); Total Bilirubin 0.7 mg/dL (0.15-1.2); Total Protein 7.1 g/dL (6.6-8.7)
--- NOTE | 2024-12-09 08:03 | ED_ITS ---
HPI - Male Genitourinary 2 General: Chief complaint: Urogenital-Male Stated complaint: unable to urinate Time Seen by Provider: 12/09/24 07:13 History of Present Illness: 84-year-old male presents emergency room unable to urinate since last evening. History of BPH curate. He is currently on Lasix 40 mg twice daily he is also diabetic. Nurse reported significant amount of urine noted on bladder scan (greater than 800). Associated symptoms: Deny dysuria Related Data Home Medications ?Medication ?Instructions ?Recorded ?Confirmed multivitamin 1 tab PO DAILY@04 06/25/20 0 12/05/24 omega-3 fatty acids 500 mg capsule 500 mg PO DAILY@04 06/25/20 12/05/24 B-complex with vitamin C 1 tab PO DAILY@07/03/22 0 12/05/24 furosemide 20 mg tablet 40 mg PO BID Edema 12/05/24 12/05/24 Previous Rx's ?Medication ?Instructions ?Recorded blood sugar diagnostic (Blood #50 ea 09/12/22 Glucose Test strips) blood-glucose meter (Blood Glucose #1 ea 09/12/22 Monitoring kit) lancets 33 gauge (BD Ultra Fine #100 ea 09/12/22 Lancets) atorvastatin 10 mg tablet See Rx Instructions .Route 0 07/27/24 .COMPLEX #90 tabs empagliflozin 25 mg tablet See Rx Instructions .Route 07/27/24 (Jardiance) .COMPLEX #90 tabs finasteride 5 mg tablet See Rx Instructions .Route 0 07/27/24 .COMPLEX #90 tabs glipizide 5 mg tablet, extended See Rx Instructions .R oute 07/27/24 release 24 hr .COMPLEX #90 tabs metformin 500 mg tablet See Rx Instructions .Route 0 07/27/24 .COMPLEX #360 tabs sitagliptin phosphate 25 mg tablet See Rx Instructions .Route 10/26/24 (Januvia) .COMPLEX #90 tabs cholecalciferol (vitamin D3) 1,250 50,000 unit PO .wee kly #12 caps 11/07/24 mcg (50,000 unit) capsule potassium chloride 20 mEq 20 meq PO BID #60 tabs 11/09 tablet,extended release (K-Tab) valsartan 160 mg tablet 160 mg PO BID #60 tabs 11/18 hydralazine 25 mg tablet 25 mg PO BID #60 tabs carvedilol 12.5 mg tablet 12.5 mg PO BID #180 tabs tamsulosin 0.4 mg capsule 0.4 mg PO DAILY #30 caps Allergies Allergy/AdvReac Type Severity Reaction Status Date / Time No Known Allergies Allergy Verified 12/05/24 13:51 Review of Systems 2 Const: Denies: fever(s) or chills Card: Denies: chest pain Resp: Denies: dyspnea GI: Denies: abdominal pain : Denies: dysuria, urinary frequency or urinary urgency Musc: Denies: neck pain or back pain Skin/Breast: Denies: rash PFSH ED 2 PFSH: Medical History Enrolled in chronic care management BPH (benign prostatic hyperplasia) Dyslipidemia Hypertension Diabetes mellitus Surgical History Hx of hernia repair (~2009) Family History Father Diabetes Hypertension Denies family history of Bleeding disorder Social History Smoking and tobacco/nicotine status: never used tobacco/nicotine Second hand smoke exposure: No Alcohol intake: never Substance/Drug Use: never Caregiver/support person: Yes Lives independently: Yes Household members: none Marital status: Single service: No Current occupational status: retired Current gender identity: Male Special ryan needs: No Agree to transfusion: Yes Physical Exam 2 Const: GENERAL APPEARANCE: cooperative ORIENTATION/CONSCIOUSNESS: Yes awake, Yes oriented to person, Yes oriented to place and Yes oriented to time HENMT: COMMON NORMALS: normocephalic, atraumatic and hearing grossly normal bilaterally HEAD & SCALP: normocephalic and atraumatic Resp: COMMON NORMALS: normal respiratory effort, No retractions, No use of accessory muscles and clear to auscultation bilaterally AUSCULTATION: clear to auscultation bilaterally Cardio: COMMON NORMALS: regular rate, regular rhythm and No murmurs present (Cardio) RATE: regular rate RHYTHM: regular rhythm GI: COMMON NORMALS: Soft to palpation and No hepatosplenomegaly present A USCULTATION: Yes normoactive bowel sounds PALPATION: Yes Soft to palpation, No Tenderness to palpation present (GI), No Guarding due to palpation present (GI) and Yes No hepatosplenomegaly present Extremity: COMMON NORMALS: normal to inspection, capillary refill normal, no clubbing, cyanosis or edema, no calf tenderness and no pedal edema Neuro: SENSORIUM/ORIENTATION: Yes oriented to person, Yes oriented to place and Yes oriented to time Skin: COMMON NORMALS: no rashes or lesions noted GENERAL SKIN EXAM: no rashes or lesions noted Course 2 Vital Signs: Vital signs: Vital Signs Temperature 98.5 F 12/09/24 06:58 Pulse Rate 92 12/09/24 08:05 Respiratory Rate 16 12/09/24 08:05 Blood Pressure 157/76 12/09/24 08:05 Pulse Oximetry 93 12/09/24 08:05 Oxygen Delivery Me thod Room Air 12/09/24 06:58 MDM - Male Medical Decision Making Patient unable to urinate. Bladder scan showed large amount of retained urine. Jim applied patient had access over thousand. Will discharge home with leg bag. Start tamsulosin refer to urology. Lab Data 12/09/24 07:34 12/09/24 07:34 Laboratory Results WBC 8.47 10^3/uL (3.29-11.43) 12/09/24 07:34 RBC 5.50 10^6/uL (3.85-5.65) 12/09/24 07:34 Hgb 17.00 g/dL (11.27-16.99) H 12/09/24 07:34 Hct 50.9 % (37-53) 12/09/24 07:34 MCV 92.5 fl (82-101) 12/09/24 07:34 MCH 30.9 pg (27-33) 12/09/24 07:34 MCHC 33.4 g/dL (30-55) 12/09/24 07:34 RDW 14.0 % (12.1-15.1) 12/09/24 07:34 Plt Count 182 10^3/cmm (157-399) 12/09/24 07:34 MPV 9.5 fL (7.4-10.4) 12/09/24 07:34 Neut % (Auto) 61.1 % 12/09/24 07:34 Lymph % (Auto) 25.3 % 12/09/24 07:34 [place] % (Auto) 8.5 % 12/09/24 07:34 Eos % (Auto) 2.5 % 12/09/24 07:34 Baso % (Auto) 0.8 % 12/09/24 07:34 Neut # (Auto) 5.18 10^3/uL (1.8-7.7) 12/09/24 07:34 Lymph # (Auto) 2.1 10^3/uL (0.8-4.8) 12/09/24 07:34 [place] # (Auto) 0.7 10^3/uL (0.2-0.9) 12/09/24 07:34 Eos # (Auto) 0.2 10^3/uL (0.0-0.8) 12/09/24 07:34 Baso # (Auto) 0.1 10^3/uL (0.0-0.1) 12/09/24 07:34 Nucleated RBC % (auto) 0 % 12/09/24 07:34 Nucleated RBCs # 0.0 /100WBC 12/09/24 07:34 Sodium 134 mmol/L (136-145) L 12/09/24 07:34 Potassium 3.9 mmol/L (3.5-5.1) 12/09/24 07:34 Chloride 98 mmol/L (98-107) 12/09/24 07:34 Carbon Dioxide 25 mmol/L (22-29) 12/09/24 07:34 Anion Gap 14.9 (5-19) 12/09/24 07:34 BUN 10 mg/dL (8-23) 12/09/24 07:34 Creatinine 0.8 mg/dL (0.7-1.2) 12/09/24 07:34 GFR Calculation Not Reportable 12/09/24 07:34 Glucose 225 mg/dL (65-115) H 12/09/24 07:34 Calculated Osmolality 284 mOsm/kg (285-295) L 12/09/24 07:34 Calcium 9.5 mg/dL (8.5-10.5) 12/09/24 07:34 Total Bilirubin 0.7 mg/dL (0.15-1.2) 12/09/24 07:34 AST 22 U/L (0-40) 12/09/24 07:34 ALT 34 U/L (0-41) 12/09/24 07:34 Alkaline Phosphatase 73 U/L (40-130) 12/09/24 07:34 Total Protein 7.1 g/dL (6.6-8.7) 12/09/24 07:34 Albumin 4.0 g/dL (3.5-5.2) 12/09/24 07:34 Globulin 3.1 g/dL (1.3-4.6) 12/09/24 07:34 Urine Color Yellow (Yellow) 12/09/24 07:17 Urine Appearance Clear (CLEAR) 12/09/24 07:17 Urine pH 8.0 (5-7) A 12/09/24 07:17 Ur Specific [place] 1.015 (1.005-1.030) 12/09/24 07:17 Urine Protein Negative (Negative) 12/09/24 07:17 Urine Glucose (UA) 3+ (Normal) H 12/09/24 07:17 Urine Ketones Negative (Negative) 12/09/24 07:17 Urine Blood Negative (Negative) 12/09/24 07:17 Urine Nitrate Negative (Negative) 12/09/24 07:17 Urine Bilirubin Negative (Negative) 12/09/24 07:17 Urine Urobilinogen 0.2 mg/dL (Negative) 12/09/24 07:17 Ur Leukocyte Esterase Negative (Negative) 12/09/24 07:17 Urine RBC 0-2 /hpf (0-2) 12/09/24 07:17 Urine WBC 0-5 /hpf (0-5) 12/09/24 07:17 Ur Squamous Epith Cells 0-5 /hpf (0-5) 12/09/24 07:17 Amorphous Sediment Not Reportable 12/09/24 07:17 Urine Bacteria None seen /hpf (NONE) 12/09/24 07:17 Hyaline Casts 0-4 /lpf H 12/09/24 07:17 No radiology studies performed this visit Discharge Plan Discharge Patient Disposition: Home Clinical Impression: Acute urinary retention, BPH with urinary obstruction Condition: Stable Prescriptions: New tamsulosin 0.4 mg capsule 0.4 mg PO DAILY Qty: 30 0RF No Action omega-3 fatty acids 500 mg capsule 500 mg PO DAILY@04 multivitamin Tablet 1 tab PO DAILY@04 metformin 500 mg tablet See Rx Instructions .ROUTE .COMPLEX Qty: 360 1RF Dose Instruction: TAKE 2 TABLETS BY MOUTH TWICE DAILY AT 4AM AND 4PM Rx Instructions: TAKE 2 TABLETS BY MOUTH TWICE DAILY AT 4AM AND 4PM glipizide 5 mg tablet extended release 24hr See Rx Instructions .ROUTE .COMPLEX Qty: 90 1RF Dose Instruction: Take 1 tablet by mouth once daily with breakfast Rx Instructions: Take 1 tablet by mouth once daily with breakfast finasteride 5 mg tablet See Rx Instructions .ROUTE .COMPLEX Qty: 90 1RF Dose Instruction: Take 1 tablet by mouth once daily Rx Instructions: Take 1 tablet by mouth once daily Jardiance 25 mg tablet See Rx Instructions .ROUTE .COMPLEX Qty: 90 1RF Dose Instruction: TAKE ONE TABLET BY MOUTH EVERY MORNING Rx Instructions: TAKE ONE TABLET BY MOUTH EVERY MORNING atorvastatin 10 mg tablet See Rx Instructions .ROUTE .COMPLEX Qty: 90 1RF Dose Instruction: TAKE 1 TABLET BY MOUTH ONCE DAILY AT 7PM Rx Instructions: TAKE 1 TABLET BY MOUTH ONCE DAILY AT 7PM cholecalciferol (vitamin D3) 1,250 mcg (50,000 unit) capsule 50,000 unit PO .weekly Qty: 12 1RF (DME) blood-glucose meter [Blood Glucose Monitoring] Kit See Rx Instructions .ROUTE .MEDSUPPLY Qty: 1 0RF Rx Instructions: check blood sugar daily and PRN (DME) Blood Glucose Test Strip See Rx Instructions .ROUTE .MEDSUPPLY Qty: 50 12RF Rx Instructions: check blood sugar daily and PRN (DME) lancets [BD Ultra Fine Lancets] 33 gauge misc See Rx Instructions .ROUTE .MEDSUPPLY Qty: 100 11RF Rx Instructions: check blood sugar daily and PRN potassium chloride [K-Tab] 20 mEq tablet extended release 20 meq PO BID Qty: 60 1RF furosemide 20 mg tablet 40 mg PO BID hydralazine 25 mg tablet 25 mg PO BID Qty: 60 1RF Januvia 25 mg tablet See Rx Instructions .ROUTE .COMPLEX Qty: 90 0RF Dose Instruction: Take 1 tablet by mouth once daily Rx Instructions: Take 1 tablet by mouth once daily valsartan 160 mg tablet 160 mg PO BID Qty: 60 0RF carvedilol 12.5 mg tablet 12.5 mg PO BID Qty: 180 3RF Super B Complex + C Tablet 1 tab PO DAILY@04 Discharge Orders: Discharge ED (Routine); Ordered 12/09/24 Ordered By: Kyle Hazel Referrals: Josi Hill FNP [Primary Care Provider, Family Practice] Discharge Diet: Usual diet Discharge Activity: Increase activity as tolerated Patient Instructions: Urinary Retention in Men (ED), Opioid Safety, Pain Management Activity Restrictions/Additional Instructions: Thank you for choosing [facility] for your healthcare needs today. It is very important that you follow up as instructed or that you return to the Emergency Department should you have concerns or if your condition changes or worsens in any way. You were seen in the emergency room with complaints of being unable to urinate. Jim catheter was placed you are found to have 1200 mL of urine in the bladder. This is likely result of your BPH. The catheter will need to remain in place for 7 to 10 days. daycare manager will make arrangements for you to follow-up with urology will start you on tamsulosin 0.4 mg daily. Print Language: Belarusian Coding Level of Care Code ED Head Of Quality for Martha Hansen
[2024-12-09 08:05] VITALS: BP 157/76; PULSE 92; RESP 16; O2SAT 93
[2024-12-09 08:06] LABS: Add Urine Culture? No
== END 2024-12-09 08:24 | disposition home or self-care (01) ==
PROVIDERS: Emergency Provider Family Medicine; PCP Nurse Practitioner Family
DX: R33.8 Other retention of urine (principal); N40.0 Benign prostatic hyperplasia without lower urinary tract symptoms; N13.9 Obstructive and reflux uropathy, unspecified; Z79.84 Long term (current) use of oral hypoglycemic drugs; E11.9 Type 2 diabetes mellitus without complications; I10 Essential (primary) hypertension; E78.5 Hyperlipidemia, unspecified
CPT/HCPCS: 51702; 51798; 80053; 81001; 85025; 99283

== ENCOUNTER → 2024-12-16 08:36 | Outpatient (BNVA) | payer MEDICARE, SELFPAY | PROVIDERS: PCP Nurse Practitioner Family; Visit Provider Nurse Practitioner Family | DX: R30.0 Dysuria (principal) | CPT/HCPCS: 81003; 87086 ==

== ENCOUNTER 2024-12-25 02:27 | Emergency (ER) | payer MEDICARE, SELFPAY ==
--- OUTSIDE RECORDS SUMMARY | 2024-12-25 02:36 | XMS_ITS | Clinical Summary ---
Author Organization [facility] Administrative Offices Address [address] [place] [address] Care Team Providers Care Customer Training Specialist Name Role Phone Josi Hill APRN Primary Care Provider [phone] Allergies No known active allergies Medications metFORMIN (GLUCOPHAGE) 500 mg tablet Take 500 mg by mouth 2 times daily with meals. 1 Active finasteride (PROSCAR) 5 mg tablet TAKE 1 TABLET BY MOUTH ONCE DAILY 1 Active atorvastatin (LIPITOR) 10 mg tablet Take 10 mg by mouth daily. 1 Active traMADoL (ULTRAM) 50 mg tabletIndication s:Status post total replacement of right hip Take 1 Tablet (50 mg) by mouth every 6 hours as needed for Pain. 28 Tablet 1 Active polyethylene glycol 3350 (Miralax) 17 gram/dose Powder Take 1 Scoop (17 Grams) by mouth daily. Dissolve in 8 ounces of fluid and drink entire liquid 510 Gram 1 Active metoprolol succinate (TOPROL XL) 25 mg Extended Release 24 hour tablet 25 mg. 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, right 03/08/2021 Preoperative general physical examination 2020 Essential hypertension 03/08/2021 Dyslipidemia 03/08/2021 Type 2 diabetes mellitus wit h hyperglycemia, without long-term current use of insulin 03/08/2021 Obesity (BMI 30.0-34.9) 03/08/2021 Hyponatremia 03/08/2021 Hip pain 03/04/2021 Resolved Problems Problem Noted Date Diagnosed Date Resolved Date Leukocytosis (leucocytosis) 03/21/2021 03/23/2021 Immunizations Immunization Administration Dates Next Due (SPIKEVAX) (12 YRS UP PRIMAR Y SERIES) COVID-19 VACCINE - MRNA-1273(PF) 100 MCG/0.5 ML IM SUSP 08/24/2020,07/27/2020 Family History Medical History Relation Name Comments Diabetes Father Hypertension Father Liver Cancer Mother Diabetes Sister 1 Hypertension Sister 1 Healthy Sister 2 Relation Name Status Comments Brother none Daughter none Father Mother Sister 1 Alive Sister 2 Alive Son none Social History Tobacco Use Types Packs/Day Years Used Date Smoking Tobacco: Never Smokeless Tobacco: Never Alcohol Use Standard Drinks/Week Comments Never 0 (1 standard drink = 0.6 oz pur e alcohol) Sex and Gender Information Value Date Recorded Sex Assigned at Not on file Legal Sex Male 12:14 PM CDT Gender Identity Not on file Sexual Orientation Not on file Last Filed Vital Signs Vital Sign Reading Time Taken Comments Blood Pressure 181/84 04/15/2021 12:[address] dusty Pulse 70 04/15/2021 12:49 PM CDT Temperature 37.3 C (99.1 F) 03/23/2021 11:26 AM CDT Respiratory Rate 20 03/23/2021 3:33 PM CDT Oxygen Saturation 97% 03/23/2021 3:33 PM CDT Inhaled Oxygen Concentration - - Weight 83 kg (183 lb) 04/15/2021 12:49 PM CDT Height 167.6 cm (5' 6 ) 04/15/2021 12:49 PM CDT Body Mass Index 29.54 04/15/2021 12:49 PM CDT Plan of Treatment Health Maintenance Due Date Last Done Comments DIABETES ANNUAL FOOT EXAM 1959 DIABETES ANNUAL RETINAL EXAM 1959 DIABETES MICROALBUMIN ANNUAL SCREEN 1959 LDL CHOLESTEROL ANNUAL 1959 DTAP/TDAP/TD VACCINES (1 - Tdap) 1960 PNEUMOCOCCAL VACCINE 50+ YEA RS (1 of 2 - PCV) 1960 ZOSTER VACCINE (1 of 2) 1991 RSV VACCINE (60+ or ) (1 - 1-dose 75+ series) 2016 DIABETES HBA1C Q 6 MONTHS 09/05/2021 03/08/2021 COVID-19 Vaccine ( season) 02/21/202410/2020, 07/27/2020 INFLUENZA VACCINE (#1) 2025 Medical Devices Implanted Type Area Bookkeeper Device Identifier Shelf Expiration Date Model / Serial / Lot Hole Eliminator [place] 1246-03-000 - [id number] Implanted:Qty: 1 on 03/20/2021 by Andre Hernandez MD at [facility] Hip Right: Hip [employer] [id number] 12/19/2030 1246-03-000 / / [id number] Cup Pinn Sctr Series 54mm 1217-22-054 - [id number] Implanted:Qty: 1 on 03/20/2021 by Andre Hernandez MD at [facility] Hip Right: Hip [employer] [id number] 01/19/2031 [id number] / / [id number] Head Fem Art/Ernesto Cer Sz36 1365-36-320 - [id number] Implanted:Qty: 1 on 03/20/2021 by Andre Hernandez MD at [facility] Hip Right: Hip [employer] [id number] 12/19/2025 [id number] / / [id number] Stem Fem Actis Colr Std Sz6 1010-11-060 - [id number] Implanted:Qty: 1 on 03/20/2021 by Andre Hernandez MD at [facility] Hip Right: Hip [employer] [id number] 11/19/20300--060 / / [id number] Liner Pinn Altrx Poly 1221-36-054 - [id number] Implanted:Qty: 1 on 03/20/2021 by Andre Hernandez MD at [facility] Hip Right: Hip [employer] [id number] 01/19/2026 [id number] / / [id number] Procedures Procedure Name Priority Date/Time Associated Diagnosis Comments HEMOGLOBIN A1C Routine 03/08/2021 2:46 PM CDT from Last 3 Months or Most Recently Relevant to Health Maintenance Results * (ABNORMAL) HEMOGLOBIN A1C (03/08/2021 2:46 PM CDT) HEMOGLOBIN A1C 6.6(H) <=5.6 % 03/08/2021 3:03 PM CDT [facility] EST. AVG GLUCOSE, A1C 143 mg/dL 03/08/2021 3:03 PM CDT [facility] Blood Venipuncture / Unknown 03/08/2021 2:46 PM CDT 03/08/2021 2:46 PM CDT Narrative [facility] - 03/08/2021 3:03 PM CDT HGB A1C INTERPRETATION NORMAL: <5.7% PRE-DIABETES: 5.7 - 6.4% DIABETES: 6.5% OR GREATER us Davide Dietz MD CHEMISTRY ORDERABLES Final Resu lt [facility] CLIA #[id number] [address] [place] [address] from Last 3 Months or Most Recently Relevant to Health Maintenance [place] [address] MCR RX [facility] Medicare Part D Advance Directives For more information, please contact: [phone] * Full Code (Latest Code Status on File) Date Activated Date Inactivated Comments 03/21/2021 2:25 AM 03/23/2021 6:13 PM Care Teams Customer Training Specialist Relationship Specialty Start Date End Date Josi Hill APRN PCP - General Nurse Practitioner Family 03/08/21
[2024-12-25 02:46] VITALS: BMI 30.7
[2024-12-25 02:54] VITALS: BP 197/90; PULSE 69; RESP 16; TEMP 36.4; O2SAT 93
[2024-12-25 03:37] LABS: Hematocrit 50.4 % (37-53); Hemoglobin 16.30 g/dL (11.27-16.99); Mean Corpuscular HGB Conc 32.3 g/dL (30-55); Mean Corpuscular Hemoglobin 30.4 pg (27-33); Mean Corpuscular Volume 94.0 fl (82-101); Nucleated Red Blood Cells % 0 %; Platelet Count 259 10^3/cmm (157-399); Red Blood Count 5.36 10^6/uL (3.85-5.65); White Blood Count 9.20 10^3/uL (3.29-11.43)
--- NOTE | 2024-12-25 03:42 | ED_ITS ---
HPI - Male Genitourinary 2 General: Chief complaint: Urogenital-Male Stated complaint: Can't pee Time Seen by Provider: 12/25/24 03:09 History of Present Illness: 84-year-old male gentleman complaining o f pelvic pain and fullness with back pain, especially over the last 12 hours or so. He has not been able to urinate. He is had this problem in the past. He had a Jim catheter until about 10 days ago, for urinary outlet obstruction. It was pulled, he had a urinary tract infection at that point, and was placed on cefdinir. He has 2 doses of this left. No fever. No vomiting. No diarrhea. Related Data Home Medications ?Medication ?Instructions ?Recorded ?Confirmed multivitamin 1 tab PO DAILY@06/25/20 0 12/16/24 omega-3 fatty acids 500 mg capsule 500 mg PO DAILY@06/25/20 12/16/24 B-complex with vitamin C 1 tab PO DAILY@07/03/22 0 12/16/24 furosemide 20 mg tablet 40 mg PO BID Edema 12/05/24 12/16/24 Previous Rx's ?Medication ?Instructions ?Recorded blood sugar diagnostic (Blood #50 ea 09/12/22 Glucose Test strips) blood-glucose meter (Blood Glucose #1 ea 09/12/22 Monitoring kit) lancets 33 gauge (BD Ultra Fine #100 ea 09/12/22 Lancets) atorvastatin 10 mg tablet See Rx Instructions .Route 0 07/27/24 .COMPLEX #90 tabs empagliflozin 25 mg tablet See Rx Instructions .Route 07/27/24 (Jardiance) .COMPLEX #90 tabs finasteride 5 mg tablet See Rx Instructions .Route 0 07/27/24 .COMPLEX #90 tabs glipizide 5 mg tablet, extended See Rx Instructions .R oute 07/27/24 release 24 hr .COMPLEX #90 tabs metformin 500 mg tablet See Rx Instructions .Route 0 07/27/24 .COMPLEX #360 tabs sitagliptin phosphate 25 mg tablet See Rx Instructions .Route 10/26/24 (Januvia) .COMPLEX #90 tabs cholecalciferol (vitamin D3) 1,250 50,000 unit PO .wee kly #12 caps 11/07/24 mcg (50,000 unit) capsule potassium chloride 20 mEq 20 meq PO BID #60 tabs 11/09 tablet,extended release (K-Tab) valsartan 160 mg tablet 160 mg PO BID #60 tabs 11/18 carvedilol 12.5 mg tablet 12.5 mg PO BID #180 tabs tamsulosin 0.4 mg capsule 0.4 mg PO DAILY #30 caps cefdinir 300 mg capsule 300 mg PO BID 10 days #20 ca ps 12/16/24 Allergies Allergy/AdvReac Type Severity Reaction Status Date / Time amlodipine Allergy Severe swelling Verified 12/16/24 08:33 hydralazine Allergy Severe enlarged Verified 12/16/24 08:43 prostrate PFSH ED 2 PFSH: Medical History Enrolled in chronic care management BPH (benign prostatic hyperplasia) Dyslipidemia Hypertension Diabetes mellitus Surgical History Hx of hernia repair (~2009) Family History Father Diabetes Hypertension Denies family history of Bleeding disorder Social History Smoking and tobacco/nicotine status: never used tobacco/nicotine Second hand smoke exposure: No Alcohol intake: never Substance/Drug Use: never Caregiver/support person: Yes Lives independently: Yes Household members: none Marital status: Single service: No Current occupational status: retired Current gender identity: Male Special ryan needs: No Agree to transfusion: Yes Physical Exam 2 Const: COMMON NORMALS: no acute distress GENERAL APPEARANCE: cooperative; not ill appearing and not frail appearing HENMT: COMMON NORMALS: normocephalic, atraumatic and Normal external nose present HEAD & SCALP: normocephalic and atraumatic FACE & SINUS: normal facial exam and face symmetric NOSE: Normal external nose present Eye: COMMON NORMALS: Equal, round and reactive pupils present and EOMs intact bilaterally PUPIL: Yes Equal, round and reactive pupils present Neck/C-Spine: GENERAL: Yes trachea midline Chest: CHEST: Yes Symmetrical chest wall rise Resp: COMMON NORMALS: normal respiratory effort, No retractions, No use of accessory muscles and clear to auscultation bilaterally AUSCULTATION: clear to auscultation bilaterally Cardio: COMMON NORMALS: regular rate and regular rhythm RATE: regular rate RHYTHM: regular rhythm GI: COMMON NORMALS: Normal to inspection, nondistended, normoactive bowel sounds present : OTHER: Mild pelvic fullness with some tenderness. No guarding. Extremity: GENERAL: Yes edema (1-2 +) Neuro: SENSORY EXAM: Yes extremities (intact) Psych: COMMON NORMALS: speech normal SPEECH: Yes normal speech Skin: COMMON NORMALS: no rashes or lesions noted GENERAL SKIN EXAM: no rashes or lesions noted Course 2 Vital Signs: Vital signs: Vital Signs Temperature 97.6 F 12/25/24 02:54 Pulse Rate 78 12/25/24 05:41 Respiratory Rate 18 12/25/24 05:41 Blood Pressure 184/94 12/25/24 05:41 Pulse Oximetry 97 12/25/24 05:41 Oxygen Delivery Me thod Room Air 12/25/24 02:54 MDM - Male Medical Decision Making Bladder scan on arrival revealed over 400 cc of urine in the bladder. Jim catheter was placed. 500 cc of clear urine immediately out. Laboratory is stable. Creatinine is 0.9. Urinalysis is negative for infection. Will be discharged home with a Jim. He has outpatient urology follow-up already scheduled. Lab Data 12/25/24 03:32 12/25/24 03:32 Laboratory Results WBC 9.20 10^3/uL (3.29-11.43) 12/25/24 03:32 RBC 5.36 10^6/uL (3.85-5.65) 12/25/24 03:32 Hgb 16.30 g/dL (11.27-16.99) 12/25/24 03:32 Hct 50.4 % (37-53) 12/25/24 03:32 MCV 94.0 fl (82-101) 12/25/24 03:32 MCH 30.4 pg (27-33) 12/25/24 03:32 MCHC 32.3 g/dL (30-55) 12/25/24 03:32 RDW 14.2 % (12.1-15.1) 12/25/24 03:32 Plt Count 259 10^3/cmm (157-399) 12/25/24 03:32 MPV 9.3 fL (7.4-10.4) 12/25/24 03:32 Neut % (Auto) 59.6 % 12/25/24 03:32 Lymph % (Auto) 26.7 % 12/25/24 03:32 Hale % (Auto) 8.4 % 12/25/24 03:32 Eos % (Auto) 3.2 % 12/25/24 03:32 Baso % (Auto) 0.7 % 12/25/24 03:32 Neut # (Auto) 5.49 10^3/uL (1.8-7.7) 12/25/24 03:32 Lymph # (Auto) 2.5 10^3/uL (0.8-4.8) 12/25/24 03:32 Hale # (Auto) 0.8 10^3/uL (0.2-0.9) 12/25/24 03:32 Eos # (Auto) 0.3 10^3/uL (0.0-0.8) 12/25/24 03:32 Baso # (Auto) 0.1 10^3/uL (0.0-0.1) 12/25/24 03:32 Nucleated RBC % (auto) 0 % 12/25/24 03:32 Nucleated RBCs # 0.0 /100WBC 12/25/24 03:32 Sodium 133 mmol/L (136-145) L 12/25/24 03:32 Potassium 3.7 mmol/L (3.5-5.1) 12/25/24 03:32 Chloride 95 mmol/L (98-107) L 12/25/24 03:32 Carbon Dioxide 28 mmol/L (22-29) 12/25/24 03:32 Anion Gap 13.7 (5-19) 12/25/24 03:32 BUN 10 mg/dL (8-23) 12/25/24 03:32 Creatinine 0.9 mg/dL (0.7-1.2) 12/25/24 03:32 GFR Calculation Not Reportable 12/25/24 03:32 Glucose 154 mg/dL (65-115) H 12/25/24 03:32 Calculated Osmolality 278 mOsm/kg (285-295) L 12/25/24 03:32 Calcium 9.3 mg/dL (8.5-10.5) 12/25/24 03:32 Total Bilirubin 0.6 mg/dL (0.15-1.2) 12/25/24 03:32 AST 25 U/L (0-40) 12/25/24 03:32 ALT 28 U/L (0-41) 12/25/24 03:32 Alkaline Phosphatase 67 U/L (40-130) 12/25/24 03:32 Total Protein 6.7 g/dL (6.6-8.7) 12/25/24 03:32 Albumin 4.0 g/dL (3.5-5.2) 12/25/24 03:32 Globulin 2.7 g/dL (1.3-4.6) 12/25/24 03:32 Urine Color Yellow (Yellow) 12/25/24 03:55 Urine Appearance Clear (CLEAR) 12/25/24 03:55 Urine pH 7.0 (5-7) 12/25/24 03:55 Ur Specific [place] 1.015 (1.005-1.030) 12/25/24 03:55 Urine Protein Negative (Negative) 12/25/24 03:55 Urine Glucose (UA) 2+ (Normal) H 12/25/24 03:55 Urine Ketones Negative (Negative) 12/25/24 03:55 Urine Blood Negative (Negative) 12/25/24 03:55 Urine Nitrate Negative (Negative) 12/25/24 03:55 Urine Bilirubin Negative (Negative) 12/25/24 03:55 Urine Urobilinogen 0.2 mg/dL (Negative) 12/25/24 03:55 Ur Leukocyte Esterase Negative (Negative) 12/25/24 03:55 Urine RBC 0-2 /hpf (0-2) 12/25/24 03:55 Urine WBC 0-5 /hpf (0-5) 12/25/24 03:55 Ur Squamous Epith Cells 0-5 /hpf (0-5) 12/25/24 03:55 Amorphous Sediment Not Reportable 12/25/24 03:55 Urine Bacteria None seen /hpf (NONE) 12/25/24 03:55 Hyaline Casts 0-4 /lpf H 12/25/24 03:55 No radiology studies performed this visit Discharge Plan Discharge Patient Disposition: Home Clinical Impression: Acute urinary retention Condition: Stable Prescriptions: No Action omega-3 fatty acids 500 mg capsule 500 mg PO DAILY@04 multivitamin Tablet 1 tab PO DAILY@04 metformin 500 mg tablet See Rx Instructions .ROUTE .COMPLEX Qty: 360 1RF Dose Instruction: TAKE 2 TABLETS BY MOUTH TWICE DAILY AT 4AM AND 4PM Rx Instructions: TAKE 2 TABLETS BY MOUTH TWICE DAILY AT 4AM AND 4PM glipizide 5 mg tablet extended release 24hr See Rx Instructions .ROUTE .COMPLEX Qty: 90 1RF Dose Instruction: Take 1 tablet by mouth once daily with breakfast Rx Instructions: Take 1 tablet by mouth once daily with breakfast finasteride 5 mg tablet See Rx Instructions .ROUTE .COMPLEX Qty: 90 1RF Dose Instruction: Take 1 tablet by mouth once daily Rx Instructions: Take 1 tablet by mouth once daily Jardiance 25 mg tablet See Rx Instructions .ROUTE .COMPLEX Qty: 90 1RF Dose Instruction: TAKE ONE TABLET BY MOUTH EVERY MORNING Rx Instructions: TAKE ONE TABLET BY MOUTH EVERY MORNING atorvastatin 10 mg tablet See Rx Instructions .ROUTE .COMPLEX Qty: 90 1RF Dose Instruction: TAKE 1 TABLET BY MOUTH ONCE DAILY AT 7PM Rx Instructions: TAKE 1 TABLET BY MOUTH ONCE DAILY AT 7PM cholecalciferol (vitamin D3) 1,250 mcg (50,000 unit) capsule 50,000 unit PO .weekly Qty: 12 1RF cefdinir 300 mg capsule 300 mg PO BID 10 Days Qty: 20 0RF (DME) blood-glucose meter [Blood Glucose Monitoring] Kit See Rx Instructions .ROUTE .MEDSUPPLY Qty: 1 0RF Rx Instructions: check blood sugar daily and PRN (DME) Blood Glucose Test Strip See Rx Instructions .ROUTE .MEDSUPPLY Qty: 50 12RF Rx Instructions: check blood sugar daily and PRN (DME) lancets [BD Ultra Fine Lancets] 33 gauge misc See Rx Instructions .ROUTE .MEDSUPPLY Qty: 100 11RF Rx Instructions: check blood sugar daily and PRN potassium chloride [K-Tab] 20 mEq tablet extended release 20 meq PO BID Qty: 60 1RF furosemide 20 mg tablet 40 mg PO BID Januvia 25 mg tablet See Rx Instructions .ROUTE .COMPLEX Qty: 90 0RF Dose Instruction: Take 1 tablet by mouth once daily Rx Instructions: Take 1 tablet by mouth once daily valsartan 160 mg tablet 160 mg PO BID Qty: 60 0RF carvedilol 12.5 mg tablet 12.5 mg PO BID Qty: 180 3RF tamsulosin 0.4 mg capsule 0.4 mg PO DAILY Qty: 30 0RF Super B Complex + C Tablet 1 tab PO DAILY@04 Discharge Orders: Discharge ED (Routine); Ordered 12/25/24 Ordered By: Kuldip Langley Referrals: Josi Hill FNP [Primary Care Provider, [facility]] - 1-3 days Patient Instructions: Urinary Retention in Men (ED), Jim Catheter Placement and Care (ED), Opioid Safety, Pain Management, Patient Portal & Briseida Instructions Activity Restrictions/Additional Instructions: Follow-up with urology as scheduled. Leave the Jim catheter in until seen. You should have your urine tested 3 to 4 days after finishing your antibiotic to ensure that there is no new infection. Return for any problems. Print Language: Maori Coding Level of Care Code ED Strike War[employer] Officer for Martha Hansen
[2024-12-25 03:56] LABS: Albumin Level 4.0 g/dL (3.5-5.2); Alkaline Phosphatase 67 U/L (40-130); Anion Gap 13.7 (5-19); Aspartate Amino Transferase 25 U/L (0-40); Blood Urea Nitrogen 10 mg/dL (8-23); Calcium 9.3 mg/dL (8.5-10.5); Carbon Dioxide 28 mmol/L (22-29); Chloride 95 mmol/L (98-107); Creatinine Clr Calc Pharmacy 63.9959; Globulin 2.7 g/dL (1.3-4.6); Glucose 154 mg/dL (65-115); Osmolality Calculated 278 mOsm/kg (285-295); Potassium 3.7 mmol/L (3.5-5.1); Sodium 133 mmol/L (136-145); Total Protein 6.7 g/dL (6.6-8.7)
[2024-12-25 04:01] LABS: Glucose Urine UA 2+ (Normal); Nitrate Urine Negative (Negative); Specific Gravity, Urine 1.015 (1.005-1.030)
[2024-12-25 04:03] LABS: Add Urine Microscopic? YES
[2024-12-25 04:06] LABS: Alanine Aminotransferase 28 U/L (0-41)
[2024-12-25 05:41] VITALS: BP 184/94; PULSE 78; RESP 18; O2SAT 97
== END 2024-12-25 05:43 | disposition home or self-care (01) ==
PROVIDERS: Emergency Provider Emergency Medicine; PCP Nurse Practitioner Family
DX: R33.9 Retention of urine, unspecified (principal); Z79.84 Long term (current) use of oral hypoglycemic drugs; E78.5 Hyperlipidemia, unspecified; E11.9 Type 2 diabetes mellitus without complications; I10 Essential (primary) hypertension
CPT/HCPCS: 36415; 51702; 80053; 81001; 85025; 99283

== ENCOUNTER 2025-01-03 15:06 | Emergency (ER) | payer MEDICARE, SELFPAY ==
[2025-01-03 15:16] VITALS: BP 158/71; PULSE 77; RESP 16; TEMP 36.7; O2SAT 90
--- OUTSIDE RECORDS SUMMARY | 2025-01-03 15:49 | XMS_ITS | Clinical Summary ---
Author Organization [facility] Address [address] [place] [address] Care Team Providers Care Post Partum Nurse Name Role Phone Josi Hill APRN Primary Care Provider [phone]- [phone] Allergies No known active allergies Medications metFORMIN [...] (#1) 2025 Medical Devices Implanted Type Area Prepress Manager Device Identifier Shelf Expiration Date Model / Serial / Lot Hole Eliminator [place] 1246-03-000 - [id number] Implanted:Qty: 1 on 03/20/2021 by Andre Hernandez MD at [facility] Hip Right: Hip [employer] [id number] 12/19/2030 1246-03-000 / / [id number] Cup Pinn Sctr Series 54mm 1217-22-054 - [id number] Implanted:Qty: 1 on 03/20/2021 by Andre Hernandez MD at [facility] Hip Right: Hip [employer] [id number] 01/19/2031 [id number] / / [id number] Head Fem Art/Ernesto Cer Sz36 1365-36-320 - [id number] Implanted:Qty: 1 on 03/20/2021 by Andre Hernandez MD at [facility] Hip Right: Hip [employer] [id number] 12/19/2025 [id number] / / [id number] Stem Fem Actis Colr Std Sz6 1010-11-060 - [id number] Implanted:Qty: 1 on 03/20/2021 by Andre Hernandez MD at [facility] Hip Right: Hip [employer] [id number] 11/19/20300--060 / / [id number] Liner Pinn Altrx Poly 1221-36-054 - [id number] Implanted:Qty: 1 on 03/20/2021 by Andre Hernandez MD at [facility] Hip Right: Hip [employer] [id number] 01/19/2026 [id number] / / [id number] Procedures Procedure Name Priority Date/Time Associated Diagnosis Comments HEMOGLOBIN A1C Routine 03/08/2021 2:46 PM CDT from Last 3 Months or Most Recently Relevant to Health Maintenance Results * (ABNORMAL) HEMOGLOBIN A1C (03/08/2021 2:46 PM CDT) HEMOGLOBIN A1C 6.6(H) <=5.6 % 03/08/2021 3:03 PM CDT [facility] EST. AVG GLUCOSE, A1C 143 mg/dL 03/08/2021 3:03 PM CDT [facility] Blood Venipuncture / Unknown 03/08/2021 2:46 PM CDT 03/08/2021 2:46 PM CDT Narrative [facility] - 03/08/2021 3:03 PM CDT HGB A1C INTERPRETATION NORMAL: <5.7% PRE-DIABETES: 5.7 - 6.4% DIABETES: 6.5% OR GREATER us Davide Dietz MD CHEMISTRY ORDERABLES Final Resu lt [facility] CLIA #[id number] [address] [place] [address] from Last 3 Months or Most Recently Relevant to Health Maintenance [place] [address] [place] [address] MCR RX [facility] Medicare Part D Advance Directives For more information, please contact: [phone] * Full Code (Latest Code Status on File) Date Activated Date Inactivated Comments 03/21/2021 2:25 AM 03/23/2021 6:13 PM Care Teams Post Partum Nurse Relationship Specialty Start Date End Date Josi Hill APRN PCP - General Nurse Practitioner Family 03/08/21
--- NOTE | 2025-01-03 16:14 | XRR_ITS ---
PROCEDURE INFORMATION: Exam: XR Chest Exam date and time: 01/03/2025 4:20 PM Age: 84 years old Clinical indication: Shortness of breath; Additional info: SOB TECHNIQUE: Imaging protocol: Radiologic exam of the chest. Views: 1 view. COMPARISON: CR XR chest 1V portable [id number] 10/31/2024 6:43 PM FINDINGS: Airway: Slight indentation of the right lateral margin of the trachea at the thoracic inlet is seen. Clinical correlation is needed to exclude right thyroid enlargement. Lungs: See Soft tissues finding. Pleural spaces: Unremarkable. No pleural effusion. No pneumothorax. Heart/Mediastinum: Unremarkable. No cardiomegaly. Vasculature: There is stable aortic calcification and mild tortuosity but no visible aneurysm. Bones/joints: Unremarkable. Soft tissues: Portable upright view of the chest was obtained. There is persistent elevation of the right hemidiaphragm. Previously seen right lung base atelectasis has improved. XR/XR chest 1V portable [id number] IMPRESSION: 1. Better aeration, right lung with improved atelectasis. 2. Persistent elevation of the right hemidiaphragm. 3. Possible right thyroid enlargement. 4. Evidence of pneumonia or developing pulmonary mass.
[2025-01-03 16:42] LABS: Hematocrit 47.7 % (37-53); Hemoglobin 15.70 g/dL (11.27-16.99); Mean Corpuscular HGB Conc 32.9 g/dL (30-55); Mean Corpuscular Hemoglobin 31.2 pg (27-33); Mean Corpuscular Volume 94.6 fl (82-101); Nucleated Red Blood Cells % 0 %; Platelet Count 237 10^3/cmm (157-399); Red Blood Count 5.04 10^6/uL (3.85-5.65); White Blood Count 13.18 10^3/uL (3.29-11.43)
[2025-01-03 17:06] LABS: Troponin(5th) Baseline 50 ng/L (0-15)
[2025-01-03 17:13] LABS: Alanine Aminotransferase 21 U/L (0-41); Albumin Level 3.6 g/dL (3.5-5.2); Alkaline Phosphatase 68 U/L (40-130); Anion Gap 17.6 (5-19); Aspartate Amino Transferase 16 U/L (0-40); Blood Urea Nitrogen 14 mg/dL (8-23); Calcium 9.5 mg/dL (8.5-10.5); Carbon Dioxide 24 mmol/L (22-29); Chloride 96 mmol/L (98-107); Creatinine Clr Calc Pharmacy 70.3795; Globulin 2.8 g/dL (1.3-4.6); Glucose 162 mg/dL (65-115); Lipase 27 U/L (13-60); NT Pro B Type Natriuretic Pept 798 pg/mL (0-450); Osmolality Calculated 282 mOsm/kg (285-295); Potassium 3.6 mmol/L (3.5-5.1); Sodium 134 mmol/L (136-145); Total Protein 6.4 g/dL (6.6-8.7)
[2025-01-03 17:14] LABS: Glucose Urine UA 3+ (Normal); Nitrate Urine Positive (Negative); Specific Gravity, Urine 1.023 (1.005-1.030)
--- NOTE | 2025-01-03 17:14 | ECG_ITS ---
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 Measurements Intervals [place] Rate: 79 P: 52 WY: 257 QRS: -63 QRSD: 158 T: 5 QT: 434 QTc: 500 Interpretive Statements SINUS RHYTHM WITH FIRST DEGREE AV BLOCK WITH FREQUENT VENTRICULAR PREMATURE COMPLEXES RIGHT BUNDLE BRANCH BLOCK [120+ ms QRS DURATION, UPRIGHT V1, 40+ ms S IN I/aVL/V4/V5/V6] LEFT ANTERIOR FASCICULAR BLOCK [QRS AXIS <= -45, QR IN I, RS IN II] MODERATE VOLTAGE CRITERIA FOR LVH, CONSIDER NORMAL VARIANT [MEETS CRITERIA IN ONE OF: R(aVL), S(V1), R(V5), R(V5/V6)+S(V1)] Compared to ECG 10/31/2024 19:59:00 Left anterior fascicular block now present Electronically Signed On 01-03-2025 18:33:55 CDT by Jerica Bonner M.D. [email or web address]
[2025-01-03 17:17] LABS: Add Urine Microscopic? YES
--- NOTE | 2025-01-03 17:45 | ED_ITS ---
HPI - Male Genitourinary 2 General: Chief complaint: Urogenital-Male Stated complaint: urinary Time Seen by Provider: 01/03/25 15:41 History of Present Illness: 84-year-old male patient presents to the emergency department complaining of inability to urinate. Patient states that he had a catheter and then was seen by urology and it was taken out today and since then he has not been able to pee patient is complaining of intense pressure. Daughter states she is worried that there is something else going on and says that patient breathes funny and seems to be short of breath however patient denies being short of breath and chest pain. Patient is afebrile. Patient denies any other complaints patient is scheduled to be scoped to see the causes of urinary obstruction Related Data Home Medications ?Medication ?Instructions ?Recorded ?Confirmed multivitamin 1 tab PO DAILY@06/25/20 0 12/16/24 omega-3 fatty acids 500 mg capsule 500 mg PO DAILY@06/25/20 12/16/24 B-complex with vitamin C 1 tab PO DAILY@07/03/22 0 12/16/24 furosemide 20 mg tablet 40 mg PO BID Edema 12/05/24 12/16/24 Previous Rx's ?Medication ?Instructions ?Recorded blood sugar diagnostic (Blood #50 ea 09/12/22 Glucose Test strips) blood-glucose meter (Blood Glucose #1 ea 09/12/22 Monitoring kit) lancets 33 gauge (BD Ultra Fine #100 ea 09/12/22 Lancets) atorvastatin 10 mg tablet See Rx Instructions .Route 0 07/27/24 .COMPLEX #90 tabs empagliflozin 25 mg tablet See Rx Instructions .Route 07/27/24 (Jardiance) .COMPLEX #90 tabs finasteride 5 mg tablet See Rx Instructions .Route 0 07/27/24 .COMPLEX #90 tabs glipizide 5 mg tablet, extended See Rx Instructions .R oute 07/27/24 release 24 hr .COMPLEX #90 tabs metformin 500 mg tablet See Rx Instructions .Route 0 07/27/24 .COMPLEX #360 tabs sitagliptin phosphate 25 mg tablet See Rx Instructions .Route 10/26/24 (Januvia) .COMPLEX #90 tabs cholecalciferol (vitamin D3) 1,250 50,000 unit PO .weluis f pratt #12 caps 11/07/24 mcg (50,000 unit) capsule potassium chloride 20 mEq 20 meq PO BID #60 tabs 11/09 tablet,extended release (K-Tab) valsartan 160 mg tablet 160 mg PO BID #60 tabs 11/18 carvedilol 12.5 mg tablet 12.5 mg PO BID #180 tabs tamsulosin 0.4 mg capsule 0.4 mg PO DAILY #30 caps cefdinir 300 mg capsule 300 mg PO BID 10 days #20 ca ps 12/16/24 ciprofloxacin HCl 250 mg tablet 250 mg PO BID 3 days # 6 tabs 01/03/25 (Cipro) Allergies Allergy/AdvReac Type Severity Reaction Status Date / Time amlodipine Allergy Severe swelling Verified 12/16/24 08:33 hydralazine Allergy Severe enlarged Verified 12/16/24 08:43 prostrate Review of Systems 2 General: Reports: 10 or more systems reviewed and unremarkable except in HPI and below PFSH ED 2 PFSH: Medical History Enrolled in chronic care management BPH (benign prostatic hyperplasia) Dyslipidemia Hypertension Diabetes mellitus Surgical History Hx of hernia repair (~2009) Family History Father Diabetes Hypertension Denies family history of Bleeding disorder Social History Smoking and tobacco/nicotine status: never used tobacco/nicotine Second hand smoke exposure: No Alcohol intake: never Substance/Drug Use: never Caregiver/support person: Yes Lives independently: Yes Household members: none Marital status: Single service: No Current occupational status: retired Current gender identity: Male Special ryan needs: No Agree to transfusion: Yes Physical Exam 2 Const: COMMON NORMALS: no acute distress GENERAL APPEARANCE: cooperative; not ill appearing and not frail appearing HENMT: COMMON NORMALS: normocephalic, atraumatic and Normal external nose present HEAD & SCALP: normocephalic and atraumatic FACE & SINUS: normal facial exam and face symmetric NOSE: Normal external nose present Eye: COMMON NORMALS: Equal, round and reactive pupils present and EOMs intact bilaterally PUPIL: Yes Equal, round and reactive pupils present Neck/C-Spine: GENERAL: Yes trachea midline Chest: CHEST: Yes Symmetrical chest wall rise Resp: COMMON NORMALS: normal respiratory effort, No retractions, No use of accessory muscles and clear to auscultation bilaterally AUSCULTATION: clear to auscultation bilaterally Cardio: COMMON NORMALS: regular rate and regular rhythm RATE: regular rate RHYTHM: regular rhythm GI: COMMON NORMALS: Normal to inspection, nondistended, normoactive bowel sounds present : OTHER: Mild pelvic fullness with some tenderness. No guarding. Extremity: GENERAL: Yes edema (1-2 +) Neuro: SENSORY EXAM: Yes extremities (intact) Psych: COMMON NORMALS: speech normal SPEECH: Yes normal speech Skin: COMMON NORMALS: no rashes or lesions noted GENERAL SKIN EXAM: no rashes or lesions noted Course 2 Vital Signs: Vital signs: Vital Signs Temperature 98.1 F 01/03/25 15:16 Pulse Rate 69 01/03/25 20:56 Respiratory Rate 14 01/03/25 18:00 Blood Pressure 154/84 01/03/25 20:56 Pulse Oximetry 91 01/03/25 20:56 Oxygen Delivery Me thod Room Air 01/03/25 20:56 MDM - Male Medical Decision Making 84-year-old male patient presents to the emergency department complaining of inability to urinate. Patient states that he had a catheter and then was seen by urology and it was taken out today and since then he has not been able to pee patient is complaining of intense pressure. Daughter states she is worried that there is something else going on and says that patient breathes funny and seems to be short of breath however patient denies being short of breath and chest pain. Patient is afebrile. Patient denies any other complaints Patient is well-appearing nontoxic and in no acute distress. Given patient's complaints and physical exam findings I did obtain a chest x-ray based on chest x-ray with possible pneumonia or developing pulmonary mass I did go ahead and order CT at the which shows a markedly enlarged prostate and possible bladder stones. Based on patient's urine I will go ahead and treat him with antibiotics. Patient does have a mildly elevated white blood cell count EKG reveals no ST elevation or depression delta Trope is within normal limits labs are otherwise reassuring patient has good follow-up scheduled as well as a scope procedure next week to evaluate further urinary obstruction I discussed with patient and daughter return precautions home care and follow-up Lab Data 01/03/25 16:31 01/03/25 16:31 Radiology Impressions Chest X-Ray 01/03/25 16:14 IMPRESSION: 1. Better aeration, right lung with improved atelectasis. 2. Persistent elevation of the right hemidiaphragm. 3. Possible right thyroid enlargement. 4. Evidence of pneumonia or developing pulmonary mass. Chest/Abdomen/Pelvis CT 01/03/25 17:46 IMPRESSION: No acute findings in the chest. IMPRESSION: 1. Cholelithiasis 2. Markedly enlarged prostate 3. Possible bladder stones. Laboratory Results WBC 13.18 10^3/uL (3.29-11.43) H 01/03/25 16:31 RBC 5.04 10^6/uL (3.85-5.65) 01/03/25 16:31 Hgb 15.70 g/dL (11.27-16.99) 01/03/25 16:31 Hct 47.7 % (37-53) 01/03/25 16:31 MCV 94.6 fl (82-101) 01/03/25 16:31 MCH 31.2 pg (27-33) 01/03/25 16:31 MCHC 32.9 g/dL (30-55) 01/03/25 16:31 RDW 14.3 % (12.1-15.1) 01/03/25 16:31 Plt Count 237 10^3/cmm (157-399) 01/03/25 16:31 MPV 9.8 fL (7.4-10.4) 01/03/25 16:31 Neut % (Auto) 70.0 % 01/03/25 16:31 Lymph % (Auto) 20.2 % 01/03/25 16:31 [place] % (Auto) 7.3 % 01/03/25 16:31 Eos % (Auto) 1.4 % 01/03/25 16:31 Baso % (Auto) 0.3 % 01/03/25 16:31 Neut # (Auto) 9.23 10^3/uL (1.8-7.7) H 01/03/25 16:31 Lymph # (Auto) 2.7 10^3/uL (0.8-4.8) 01/03/25 16:31 [place] # (Auto) 1.0 10^3/uL (0.2-0.9) H 01/03/25 16:31 Eos # (Auto) 0.2 10^3/uL (0.0-0.8) 01/03/25 16:31 Baso # (Auto) 0.0 10^3/uL (0.0-0.1) 01/03/25 16:31 Nucleated RBC % (auto) 0 % 01/03/25 16:31 Nucleated RBCs # 0.0 /100WBC 01/03/25 16:31 Sodium 134 mmol/L (136-145) L 01/03/25 16:31 Potassium 3.6 mmol/L (3.5-5.1) 01/03/25 16:31 Chloride 96 mmol/L (98-107) L 01/03/25 16:31 Carbon Dioxide 24 mmol/L (22-29) 01/03/25 16:31 Anion Gap 17.6 (5-19) 01/03/25 16:31 BUN 14 mg/dL (8-23) 01/03/25 16:31 Creatinine 0.9 mg/dL (0.7-1.2) 01/03/25 16:31 GFR Calculation Not Reportable 01/03/25 16:31 Glucose 162 mg/dL (65-115) H 01/03/25 16:31 Calculated Osmolality 282 mOsm/kg (285-295) L 01/03/25 16:31 Calcium 9.5 mg/dL (8.5-10.5) 01/03/25 16:31 Total Bilirubin 0.4 mg/dL (0.15-1.2) 01/03/25 16:31 AST 16 U/L (0-40) 01/03/25 16:31 ALT 21 U/L (0-41) 01/03/25 16:31 Alkaline Phosphatase 68 U/L (40-130) 01/03/25 16:31 Troponin T Baseline 50 ng/L (0-15) H 01/03/25 16:31 Troponin T 120 Minute 54.41 ng/L (0-15) H 01/03/25 18:49 Delta Troponin T 4.41 ABS# (0-10) 01/03/25 18:49 NT-Pro-B Natriuret Pep 798 pg/mL (0-450) H 01/03/25 16:31 Total Protein 6.4 g/dL (6.6-8.7) L 01/03/25 16:31 Albumin 3.6 g/dL (3.5-5.2) 01/03/25 16:31 Globulin 2.8 g/dL (1.3-4.6) 01/03/25 16:31 Lipase 27 U/L (13-60) 01/03/25 16:31 Urine Color Yellow (Yellow) 01/03/25 16:59 Urine Appearance Clear (CLEAR) 01/03/25 16:59 Urine pH 6.5 (5-7) 01/03/25 16:59 Ur Specific [place] 1.023 (1.005-1.030) 01/03/25 16:59 Urine Protein 1+ (Negative) A 01/03/25 16:59 Urine Glucose (UA) 3+ (Normal) H 01/03/25 16:59 Urine Ketones Negative (Negative) 01/03/25 16:59 Urine Blood 3+ (Negative) A 01/03/25 16:59 Urine Nitrate Positive (Negative) A 01/03/25 16:59 Urine Bilirubin Negative (Negative) 01/03/25 16:59 Urine Urobilinogen 0.2 mg/dL (Negative) 01/03/25 16:59 Ur Leukocyte Esterase 2+ (Negative) A 01/03/25 16:59 Urine RBC 21-50 /hpf (0-2) H 01/03/25 16:59 Urine WBC >100 /hpf (0-5) H 01/03/25 16:59 Ur Squamous Epith Cells 0-5 /hpf (0-5) 01/03/25 16:59 Amorphous Sediment Not Reportable 01/03/25 16:59 Urine Bacteria 3+ /hpf (NONE) H 01/03/25 16:59 Hyaline Casts 0.40 /lpf 01/03/25 16:59 All radiology interpretation(s) finalized by discharge Discharge Plan Discharge Patient Disposition: Home Clinical Impression: Urinary tract infection Qualifiers: Urinary tract infection type: site unspecified Hematuria presence: without hematuria Qualified Code(s): N39.0 - Urinary tract infection, site not specified Condition: Stable Prescriptions: New ciprofloxacin HCl [Cipro] 250 mg tablet 250 mg PO BID 3 Days Qty: 6 0RF No Action omega-3 fatty acids 500 mg capsule 500 mg PO DAILY@04 multivitamin Tablet 1 tab PO DAILY@04 metformin 500 mg tablet See Rx Instructions .ROUTE .COMPLEX Qty: 360 1RF Dose Instruction: TAKE 2 TABLETS BY MOUTH TWICE DAILY AT 4AM AND 4PM Rx Instructions: TAKE 2 TABLETS BY MOUTH TWICE DAILY AT 4AM AND 4PM glipizide 5 mg tablet extended release 24hr See Rx Instructions .ROUTE .COMPLEX Qty: 90 1RF Dose Instruction: Take 1 tablet by mouth once daily with breakfast Rx Instructions: Take 1 tablet by mouth once daily with breakfast finasteride 5 mg tablet See Rx Instructions .ROUTE .COMPLEX Qty: 90 1RF Dose Instruction: Take 1 tablet by mouth once daily Rx Instructions: Take 1 tablet by mouth once daily Jardiance 25 mg tablet See Rx Instructions .ROUTE .COMPLEX Qty: 90 1RF Dose Instruction: TAKE ONE TABLET BY MOUTH EVERY MORNING Rx Instructions: TAKE ONE TABLET BY MOUTH EVERY MORNING atorvastatin 10 mg tablet See Rx Instructions .ROUTE .COMPLEX Qty: 90 1RF Dose Instruction: TAKE 1 TABLET BY MOUTH ONCE DAILY AT 7PM Rx Instructions: TAKE 1 TABLET BY MOUTH ONCE DAILY AT 7PM cholecalciferol (vitamin D3) 1,250 mcg (50,000 unit) capsule 50,000 unit PO .weekly Qty: 12 1RF cefdinir 300 mg capsule 300 mg PO BID 10 Days Qty: 20 0RF (DME) blood-glucose meter [Blood Glucose Monitoring] Kit See Rx Instructions .ROUTE .MEDSUPPLY Qty: 1 0RF Rx Instructions: check blood sugar daily and PRN (DME) Blood Glucose Test Strip See Rx Instructions .ROUTE .MEDSUPPLY Qty: 50 12RF Rx Instructions: check blood sugar daily and PRN (DME) lancets [BD Ultra Fine Lancets] 33 gauge misc See Rx Instructions .ROUTE .MEDSUPPLY Qty: 100 11RF Rx Instructions: check blood sugar daily and PRN potassium chloride [K-Tab] 20 mEq tablet extended release 20 meq PO BID Qty: 60 1RF furosemide 20 mg tablet 40 mg PO BID Januvia 25 mg tablet See Rx Instructions .ROUTE .COMPLEX Qty: 90 0RF Dose Instruction: Take 1 tablet by mouth once daily Rx Instructions: Take 1 tablet by mouth once daily valsartan 160 mg tablet 160 mg PO BID Qty: 60 0RF carvedilol 12.5 mg tablet 12.5 mg PO BID Qty: 180 3RF tamsulosin 0.4 mg capsule 0.4 mg PO DAILY Qty: 30 0RF Super B Complex + C Tablet 1 tab PO DAILY@04 Discharge Orders: Discharge ED (Routine); Ordered 01/03/25 Ordered By: Valerie De Referrals: Josi Hill FNP [Primary Care Provider, Family Practice] Discharge Diet: Advance as tolerated Discharge Activity: Increase activity as tolerated Patient Instructions: Opioid Safety, Pain Management, Patient Portal & [place] Instructions Activity Restrictions/Additional Instructions: Please keep Urology appointment as scheduled Please follow up with PCP for recheck Keep catheter in place until advised by Urology Return to ER with any worsening of symptoms Print Language: Frisian Coding Level of Care Code 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
--- NOTE | 2025-01-03 17:46 | CTR_ITS ---
PROCEDURE INFORMATION: Exam: CT Chest With Contrast; Diagnostic Exam date and time: 01/03/2025 6:21 PM Age: 84 years old Clinical indication: Abdominal tenderness; Shortness of breath; Additional info: Mass SOB TECHNIQUE: Imaging protocol: Diagnostic computed tomography of the chest with contrast. Radiation optimization: All CT scans at this facility use at least one of these dose optimization techniques: automated exposure control; mA and/or kV adjustment per patient size (includes targeted exams where dose is matched to clinical indication); or iterative reconstruction. Contrast material: [id number]; Contrast volume: 100 ml; Contrast route: INTRAVENOUS (IV); COMPARISON: CR XR chest 1V portable [id number] 01/03/2025 4:20 PM RADIATION DOSE METRICS: Total DLP (mGy-cm): 1308.17 FINDINGS: Lungs: There is some mild subsegmental atelectasis or scarring at the lung bases. No acute infiltrate is identified. There is calcified granuloma in the right lower lobe. Pleural spaces: Unremarkable. No pneumothorax. No pleural effusion. Heart: Unremarkable. No cardiomegaly. No pericardial effusion. Coronary arteries: There is moderate atherosclerotic calcification of the coronary arteries. Lymph nodes: There are calcified right hilar lymph nodes in keeping with old granulomatous disease. There is no evidence of lymphadenopathy. Vasculature: There is some atherosclerotic calcification of the descending thoracic aorta. There is no thoracic aortic aneurysm or dissection. Bones/joints: There is mild S shaped scoliosis of the thoracic spine. There are mild degenerative changes in thoracic spine. There is no evidence of acute fracture. There is slight chronic appearing compression superior endplate of T7. Soft tissues: Unremarkable. PROCEDURE INFORMATION: Exam: CT Abdomen And Pelvis With Contrast Exam date and time: 01/03/2025 6:21 PM Age: 84 years old Clinical indication: Abdominal tenderness; Shortness of breath; Additional info: Mass SOB TECHNIQUE: Imaging protocol: Computed tomography of the abdomen and pelvis with contrast. Radiation optimization: All CT scans at this facility use at least one of these dose optimization techniques: automated exposure control; mA and/or kV adjustment per patient size (includes targeted exams where dose is matched to clinical indication); or iterative reconstruction. 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 Gallbladder and biliary ducts: There are multiple calcified gallstones in the gallbladder. Gallbladder is collapsed but otherwise unremarkable. There is no common bile duct dilation. Pancreas: The pancreas is normal. Spleen: There is a 4 mm hypodensity posterior aspect of the spleen possibly small splenic cyst. Adrenal glands: The adrenal glands are normal. Kidneys and ureters: The kidneys are normal. There is no evidence of hydronephrosis. There is no evidence of renal or ureteral calcifications. Stomach and bowel: Mild diverticulosis is present in the distal colon. There is no evidence of colitis/diverticulitis. There is no evidence of intestinal obstruction. Appendix: A normal appendix is identified. Intraperitoneal space: Unremarkable. No free air. No significant fluid collection. Vasculature: The aorta demonstrates moderate atherosclerotic calcification. There is no evidence of an abdominal aortic aneurysm. Lymph nodes: There is no evidence of lymphadenopathy. Urinary bladder: Urinary bladder is drained by Jim catheter. There is a suggestion of some calcifications within the urinary bladder which could potentially represent small bladder stones. Reproductive: The prostate demonstrates marked nonspecific enlargement. The seminal vesicles are normal. Prostate volume is approximately 100 cc. Bones/joints: The lumbar spine demonstrates moderate degenerative changes at multiple levels. There is no evidence of acute fracture. Soft tissues: Unremarkable. CT/CT chest abdpel w/*[id number] IMPRESSION: No acute findings in the chest. IMPRESSION: 1. Cholelithiasis 2. Markedly enlarged prostate 3. Possible bladder stones.
[2025-01-03 18:00] VITALS: BP 126/51; PULSE 57; RESP 14; O2SAT 91
[2025-01-03] MEDS: iohexol 350 mg/mL 500 mL Btl (per mL) IV (18:25)
[2025-01-03 19:31] LABS: Troponin 5 2HR 54.41 ng/L (0-15); Troponin 5 2HR Delta 4.41 ABS# (0-10)
[2025-01-03] MEDS: cefTRIAXone 1,000 MG in water for injection-sterile 2.1 ML 2.1 MG IM (20:55)
[2025-01-03 20:56] VITALS: BP 154/84; PULSE 69; O2SAT 91
== END 2025-01-03 21:14 | disposition home or self-care (01) ==
PROVIDERS: Emergency Provider Registered Nurse; PCP Nurse Practitioner Family
DX: N39.0 Urinary tract infection, site not specified (principal); I10 Essential (primary) hypertension; E78.5 Hyperlipidemia, unspecified; E11.9 Type 2 diabetes mellitus without complications; Z79.899 Other long term (current) drug therapy; Z79.84 Long term (current) use of oral hypoglycemic drugs
CPT/HCPCS: 36415; 51702; 51798; 71045; 71260; 74177; 80053; 81001; 83690; 83880; 84484; 85025; 87077; 87086; 87186; 93005; 99285; J0696

== ENCOUNTER → 2025-01-16 12:59 | Outpatient (BNVA) | payer MEDICARE, SELFPAY | PROVIDERS: PCP Nurse Practitioner Family; Visit Provider Nurse Practitioner Family | DX: N39.0 Urinary tract infection, site not specified (principal) | CPT/HCPCS: 80053; 81000; 85025; 87086 ==

== ENCOUNTER → 2025-04-06 12:52 | Outpatient (BNVA) | payer MEDICARE, SELFPAY | PROVIDERS: PCP Nurse Practitioner Family; Visit Provider Internal Medicine | DX: E11.9 Type 2 diabetes mellitus without complications (principal); E55.9 Vitamin D deficiency, unspecified; E87.1 Hypo-osmolality and hyponatremia; R60.9 Edema, unspecified; E78.5 Hyperlipidemia, unspecified; R06.02 Shortness of breath | CPT/HCPCS: 80048; 82306; 83036; 83880; 85025 ==

== ENCOUNTER → 2025-04-11 15:17 | Outpatient (BNVA) | payer MEDICARE, SELFPAY | PROVIDERS: PCP Nurse Practitioner Family; Visit Provider Nurse Practitioner Family | DX: N39.0 Urinary tract infection, site not specified (principal); R41.3 Other amnesia | CPT/HCPCS: 81000; 87086 ==

== ENCOUNTER → 2025-04-20 12:29 | Outpatient (BNVA) | payer MEDICARE, SELFPAY | PROVIDERS: PCP Nurse Practitioner Family; Visit Provider Nurse Practitioner Family | DX: N39.0 Urinary tract infection, site not specified (principal); R41.3 Other amnesia | CPT/HCPCS: 80053; 81003; 87086 ==

== ENCOUNTER → 2025-04-28 13:20 | Outpatient (BNVA) | payer MEDICARE, SELFPAY | PROVIDERS: PCP Nurse Practitioner Family; Visit Provider Nurse Practitioner Family | DX: R30.0 Dysuria (principal); R41.3 Other amnesia | CPT/HCPCS: 81003; 87086 ==

== ENCOUNTER → 2025-05-16 13:07 | Outpatient (BNVA) | payer MEDICARE, SELFPAY | PROVIDERS: PCP Nurse Practitioner Family; Visit Provider Nurse Practitioner Family | DX: R41.3 Other amnesia (principal) | CPT/HCPCS: 81000; 87086 ==